=== PATIENT | male | born 1960 | race Caucasian/White ===

== ENCOUNTER 2023-08-26 09:18 | Outpatient (OUT) | payer OTHER, SELFPAY ==
--- NOTE | 2023-08-26 09:22 | US_ITS ---
The [address] [address] Patient Name: BELGICA PRINCE MRN: [id number] date: 1960 Sex: M Assigned Patient Location: US Current Patient Location: US Accession/Order Number: [id number] Exam Date: 08/26/2023 09:23 Report Date: 08/26/2023 14:05 At the request of: TERRI FENTON Procedure: US right upper quadrant EXAMINATION: US right upper quadrant HISTORY: Gastritis K29.70 ; not feeling well COMPARISON: No relevant comparison available. TECHNIQUE: Transabdominal evaluation of the right upper quadrant. FINDINGS: LIVER: Normal size and echotexture. Color Doppler demonstrates patent hepatic veins. PORTAL VEIN: Duplex Doppler demonstrates normal hepatopetal flow pattern with flow velocity averaging 27 cm/s. GALLBLADDER: Contains a 3 mm polyp versus small stone adherent to posterior wall. No abnormal wall thickening or free fluid. Negative sonographic Parish's sign. BILIARY: No abnormal dilation or stones. Common bile duct diameter is within normal limits. PANCREASE: No visible mass, abnormal atrophy, or abnormal duct dilation. KIDNEY: No hydronephrosis. No visible mass or stones. Size: [9.2 x 5.7 x 5.6 cm US/US right upper quadrant IMPRESSION: 1. Incidental small stone versus polyp within gallbladder. 2. No suspicious findings to account for patient's symptoms. Electronically authenticated by: NICHOLAS HALE Date: 08/26/2023 14:05
== END 2023-08-26 09:19 | disposition home or self-care (01) ==
LOC: US 09:18
PROVIDERS: PCP Family Medicine; Visit Provider Family Medicine
DX: K29.70 Gastritis, unspecified, without bleeding (principal)
CPT/HCPCS: 76705

== ENCOUNTER 2023-09-10 08:49 | Outpatient (OUT) | payer OTHER, SELFPAY ==
--- NOTE | 2023-09-10 09:02 | CT_ITS ---
The [address] [address] Patient Name: BELGICA PRINCE MRN: [id number] date: 1960 Sex: M Assigned Patient Location: LAB Current Patient Location: Accession/Order Number: [id number] Exam Date: 09/10/2023 10:00 Report Date: 09/12/2023 08:42 At the request of: TERRI FENTON Procedure: CT abdomen pelvis w con EXAM: CT abdomen pelvis w con HISTORY: R10.9, K29.70 chronic nausea and abdominal pain COMPARISON: None. TECHNIQUE: Following intravenous administration of 94 mL of Omnipaque 300, axial soft tissue windows of the abdomen and pelvis were performed with coronal and sagittal reformats. CT dose reduction technique was used including Automated Exposure Control. Findings: The liver, gallbladder, spleen, pancreas, adrenal glands and kidneys are unremarkable. The bilateral ureters are nondilated. The bowel is unremarkable without evidence of wall thickening or obstruction. The appendix is nondilated. The aorta is normal caliber. Moderate atherosclerotic disease. No enlarged abdominal lymph nodes or free abdominal fluid. Tiny fat-containing umbilicus hernia. Pelvis: There is mild circumferential bladder wall thickening. No bladder calculi. The prostate is nonenlarged. No enlarged pelvic lymph nodes or free pelvic fluid. No aggressive sclerotic or lytic osseous lesions. Mild multilevel degenerative thoracic spondylosis. CT/CT abdomen pelvis w con IMPRESSION: 1. Mild circumferential bladder wall thickening may relate to lack of complete distention. Chronic outlet obstruction and cystitis can have a similar appearance. Electronically authenticated by: FRANSISCO THOMAS Date: 09/12/2023 08:42
[2023-09-10 09:10] LABS: Estimated GFR (African America >60 (>=60); Estimated GFR (Non-African Ame >60 (>=60)
== END 2023-09-10 08:50 | disposition home or self-care (01) ==
LOC: LAB 08:49
PROVIDERS: PCP Family Medicine; Visit Provider Family Medicine
DX: R10.9 Unspecified abdominal pain (principal); K29.70 Gastritis, unspecified, without bleeding
CPT/HCPCS: 36415; 74177; 82565; Q9967

== ENCOUNTER 2023-12-27 09:19 | Outpatient (OUT) | payer OTHER, SELFPAY ==
--- NOTE | 2023-12-27 09:32 | XR_ITS ---
The [address] [address] Patient Name: BELGICA PRINCE MRN: [id number] date: 1960 Sex: M Assigned Patient Location: [facility] Current Patient Location: LAB Accession/Order Number: [id number] Exam Date: 12/27/2023 09:33 Report Date: 12/28/2023 08:05 At the request of: TERRI FENTON Procedure: XR chest 2V EXAMINATION: XR chest 2V HISTORY: Weakness, Chronic Obstructive Pulmonary Disease COMPARISON: No relevant comparison available. TECHNIQUE: PA and lateral FINDINGS: LUNGS: No significant pulmonary parenchymal abnormalities. VASCULATURE: No increased pulmonary vasculature. PLEURA: No pneumothorax, effusion, or pleural thickening. CARDIAC: No cardiomegaly or cardiac silhouette abnormality. MEDIASTINUM: No visible mass or adenopathy. BONES: No fracture or visible bone lesion. OTHER: Negative. XR/XR chest 2V IMPRESSION: No acute cardiopulmonary process Electronically authenticated by: RAMSES TREVINO Date: 12/28/2023 08:05
== END 2023-12-27 09:20 | disposition home or self-care (01) ==
LOC: RAD 09:20
PROVIDERS: PCP Family Medicine; Visit Provider Family Medicine
DX: R53.1 Weakness (principal); J44.9 Chronic obstructive pulmonary disease, unspecified
CPT/HCPCS: 71046

== ENCOUNTER 2023-12-28 08:04 | Outpatient (OUT) | payer OTHER, SELFPAY ==
[2023-12-28 08:18] LABS: Basophils Absolute Auto 0.1 10^3/uL (0.0-0.1); Basophils Percent Auto 0.7 % (0.2-2.0); Eosinophils Absolute Auto 0.1 10^3/uL (0.0-0.7); Eosinophils Percent Auto 1.9 % (0.9-7.0); Hematocrit 44.6 % (42.0-54.0); Immature Granulocytes Abs Auto 0.03 10^3/uL (0.00-0.03); Immature Granulocytes Pct Auto 0.4 % (0.0-0.5); Lymphocytes Absolute Auto 1.8 10^3/uL (1.2-3.8); Lymphocytes Percent Auto 24.2 % (20.5-60.0); Mean Corpuscular HGB Conc 33.6 g/dL (29.9-35.2); Mean Corpuscular Hemoglobin 29.9 pg (25.9-34.0); Mean Platelet Volume 9.6 fL (9.5-13.5); Monocytes Absolute Auto 0.6 10^3/uL (0.3-0.8); Neutrophils Absolute Auto 4.9 10^3/uL (1.4-6.5); Neutrophils Percent Auto 64.8 % (43.0-75.0); Platelet Count 245 10^3/uL (150-450); Red Blood Count 5.01 10^6/uL (4.70-6.10); White Blood Count 7.5 10^3/uL (4.0-11.0)
[2023-12-28 10:41] LABS: Thyroid Stimulating Hormone 1.181 uIU/mL (0.358-3.740)
[2023-12-28 11:31] LABS: Estimated Average Glucose 97 mg/dL
[2023-12-28 13:16] LABS: Free T4 1.11 ng/dL (0.76-1.46)
[2023-12-29 05:09] LABS: Testosterone 489 ng/dL (264-916)
== END 2023-12-28 08:05 | disposition home or self-care (01) ==
LOC: LAB 08:04
PROVIDERS: PCP Family Medicine; Visit Provider Family Medicine
DX: I11.0 Hypertensive heart disease with heart failure (principal); I50.30 Unspecified diastolic (congestive) heart failure; R53.1 Weakness; R73.09 Other abnormal glucose
CPT/HCPCS: 36415; 83036; 83880; 84403; 84439; 84443; 85025

== ENCOUNTER 2024-03-16 11:23 | Outpatient (OUT) | payer OTHER, SELFPAY ==
--- OUTSIDE RECORDS SUMMARY | 2024-03-16 11:25 | XMS_ITS | CCD ---
Author Organization [facility] Care Team Providers Care Living Manager Name Role Phone KRIS MCDOWELL Attending Unavailable OLEXA, KRIS Admitting Unavailable OLEXA, KRIS Admitting Unavailable OLEXA, KRIS Attending Unavailable RAY, DR MURRAY Primary Care Unavailable NELLYY, DR MURRAY Consulting Unavailable HOY, DR MURRAY Attending Unavailable HOY, DR MURRAY Admitting Unavailable ZIEBER, DR NICHOLAS Suarez Consulting Unavailable NILL, DR ADAN Attending Unavailable NILL, DR ADAN Admitting Unavailable NILL, DR ADAN Consulting Unavailable PREETI, LISA Consulting Unavailable NELLYY, DR MURRAY Attending Unavailable HOY, DR MURRAY Admitting Unavailable NILL, DR ADAN Admitting Unavailable NILL, DR ADAN Consulting Unavailable NILL, DR ADAN Attending Unavailable OLEXA, KRIS Attending Unavailable JE, KRIS Admitting Unavailable Terri Bell Primary Care Physician Terri Bell Referring Unavailable JORGE, Antionette Suarez Attending Unavailable James Stapleton Attending Unavailable MoVandana delgadillo AKelsi Attending Unavailable Moucheunice Mohamad AKelsi Attending Unavailable Moelie, Mohamad AKelsi Referring Unavailable Mobebetoli Mohamad AKelsi Admitting Unavailable Mouchli, Mohamad A. Attending Unavailable Moelie, Mohamad AKelsi Admitting Unavailable Allergies Allergy Classification Reported Allergen(s) Allergy Type Date of Onset Reaction(s) Facility (3 sources) No Known Medication Allergies; Translations: [No Known Medication Allergies] Propensity to adverse reactions (disorder) [facility] Repository Medications Current Medications Medication Drug Class(es) Dates Sig (Normalized) Sig (Original) ARIPiprazole 5 mg oral tablet (5 sources) Atypical Antipsychotic Start: 08-24-2023 take 1 tablet by mouth once daily Abilify 5 mg Tab 5 mg = 1 tab(s), Oral, Daily, Refills(s) 0, Depression Start Date: 08/24/23 Status: Ordered 24 hr buPROPion hydrochloride 150 mg extended release oral tablet (5 sources) Aminoketone Start: 08-24-2023 take 1 tablet by mouth once daily Wellbutrin XL 150 mg/24 hours Tab-ER 150 mg = 1 tab(s), Oral, Daily, Refills(s) 0, Depression Start Date: 08/24/23 Status: Ordered famotidine 20 mg oral tablet (3 sources) Histamine-2 Receptor Antagonist Start: 12-06-2023 End: 12-20-2023 take 1 tablet by mouth twice daily famotidine 20 mg Tab 20 mg = 1 tab(s), Oral, BID, X 14 day(s), # 28 tab(s), Refills(s) 0, Pharmacy: [id number], 170, cm, 12/06/23 13:17:00 EDT, Height/Length Dosing, 63.4, kg, 12/06/23 13:17:00 EDT, Weight Dosing Start Date: 12/06/23 Stop Date: 12/20/23 Status: Ordered ondansetron 4 mg disintegrating oral tablet (4 sources) Serotonin-3 Receptor Antagonist Start: 12-06-2023 take 1 tablet by mouth every six hours ondansetron 4 mg Dis Tab 4 mg = 1 tab(s), Oral, q6hr, # 12 tab(s), Refills(s) 0, Pharmacy: [id number], 170, cm, 12/06/23 13:17:00 EDT, Height/Length Dosing, 63.4, kg, 12/06/23 13:17:00 EDT, Weight Dosing Start Date: 12/06/23 Status: Ordered pantoprazole 40 mg delayed release oral tablet (2 sources) Proton Pump Inhibitor Start: 12-16-2023 take 1 tablet by mouth once daily Protonix 40 mg Tab-DR 40 mg = 1 tab(s), Oral, Daily, # 30 tab(s), Refills(s) 6, Pharmacy: [id number], 170, cm, 12/16/23 7:24:00 EDT, Height/Length Dosing, 63.5, kg, 12/16/23 7:24:00 EDT, Weight Dosing Start Date: 12/16/23 Status: Ordered Problems Active Problems Problem Classification Problem Date Documented Da te Episodic/Chronic Abdominal pain (16 sources) Epigastric pain; Translations: [Epigastric pain] Onset: 09-20-2023 Episodic Alcohol-related disorders (4 sources) Chronic alcoholism in remission; Translations: [Alcohol dependence, in remission] Onset: 12-15-2023 Chronic Anxiety disorders (5 sources) Anxiety 08-24-2023 Chronic Esophageal disorders (6 sources) Gastro-esophageal reflux disease without esophagitis; Translations: [Gastroesophageal reflux disease without esophagitis] Onset: 07-14-2020 Chronic Genitourinary symptoms and ill-defined conditions (5 sources) History of hematuria 08-24-2023 Episodic Malaise and fatigue (1 source) Weakness; Translations: [WEAKNESS] Onset: 07-02-2021 Episodic Nausea and vomiting (13 sources) Nausea; Translations: [Nausea] Onset: 09-20-2023 Episodic Osteoarthritis (2 sources) Primary osteoarthritis, right shoulder; Translations: [Unspecified osteoarthritis, unspecified site] Onset: 07-14-2020 Chronic Other connective tissue disease (1 source) Abnormal posture; Translations: [ABNORMAL POSTURE] Onset: 07-02-2021 Episodic Other gastrointestinal disorders (5 sources) Occult blood in stools 06-23-2020 Episodic Other non-traumatic joint disorders (1 source) Pain in right shoulder; Translations: [PAIN IN RIGHT SHOULDER] Onset: 07-02-2021 Episodic Other non-traumatic joint disorders (1 source) Stiffness of right shoulder, not elsewhere classified; Translations: [STIFFNESS RIGHT SHOULDER NEC] Onset: 07-02-2021 Episodic Residual codes; unclassified (5 sources) Tobacco user 08-24-2023 Episodic Spondylosis; intervertebral disc disorders; other back problems (1 source) Other cervical disc degeneration, unspecified cervical region; Translations: [OTH CERV DISC DEGENERATION UNS CERV] Onset: 11-19-2020 Chronic Sprains and strains (4 sources) Strain of muscle(s) and tendon(s) of the rotator cuff of right shoulder, subsequent encounter; Translations: [STRN MSC TEND ROT CUFF RT SHLDR SUB] Onset: 02-19-2021 Episodic Substance-related disorders (1 source) Nicotine dependence, cigarettes, uncomplicated; Translations: [NICOTINE DEPEND CIGARETTES UNCOMP] Onset: 07-14-2020 Chronic Unclassified (1 source) PERSONAL HISTORY OF COVID-19; Translations: [PERSONAL HISTORY OF COVID-19] Onset: 07-14-2020 Unclassified (1 source) CONTACT W/AND (SUSP) EXPOS COVID-19; Translations: [CONTACT W/AND (SUSP) EXPOS COVID-19] Onset: 07-09-2020 Past or Other Problems Problem Classification Problem Date Documented Da te Episodic/Chronic Other and unspecified benign neoplasm (1 source) Benign neoplasm of sigmoid colon; Translations: [BENIGN NEOPLASM OF SIGMOID COLON] Onset: 07-14-2020 Episodic Other connective tissue disease (4 sources) Impingement syndrome of right shoulder; Translations: [IMPINGEMENT SYNDROME RIGHT SHOULDER] Onset: 11-17-2020 Episodic Other gastrointestinal disorders (4 sources) Other fecal abnormalities; Translations: [OTHER FECAL ABNORMALITIES] Onset: 07-09-2020 Episodic Results Test Name Value Interpretation Reference Range Facility H. pylori Stool Agon 024 H. pylori Ag IA Ql (Stl) Negative Invalid Interpretation Code Negative [facility] Comment on above: Result Comment: Perf ormed at: [facility] [address] [id number] PhD Juliette Baltazar Performed By: #### 1 [id number] #### [facility] [address] [place] [address] Surgical Pathology Reporton 12-20-2023 Surgical Pathology Report [facility] [address] [place] [address]- Surgical Pathology Report Collected Date/Time: 12/16/2023 08:40 EDT Pathologist: Jesse Menendez MD Received Date/Time: 12/16/2023 10:18 EDT Leyla STEPHENS, Vandana Mayer MD, Vandana Simmons Surgical Pathology Report - 12/20/2023 10:27 EDT - Auth (Verified) Final Diagnosis A: LOWER ESOPHAGUS, BIOPSY: - Gastroesophageal junctional mucosa consistent with reflux esophagitis with rare goblet cells. - No definite evidence of intestinal metaplasia/Junior's-type mucosa identified. - No evidence of dysplasia or malignancy identified. B: STOMACH, BIOPSY: - Antral-type gastric mucosa with marked chronic inactive gastritis. - Helicobacter pylori microorganisms are identified with immunohistochemical stain. (Electronic Signature) Yan. Gemma MD 12/20/2023 10:27 Clinical Information Nausea, chronic GERD, abdominal pain Pre-Op Diagnosis: Nausea, chronic GERD, abdominal pain Procedure: EGD Post-Op Diagnosis: 1.Hiatal hernia 2.Probable BE 3.Gastropathy 4.Duodenitis Specimen(s) Received A: Lower esophagus biopsy B: Gastric biopsy Gross Description A: Received in formalin labeled with patient name, number, and lower esophagus biopsy are multiple fragments of armstrong/pink tissue ranging from 0.1 to 0.3 cm in greatest dimension. Specimen is entirely submitted in one cassette. B: Received in formalin labeled with patient name, number, and gastric biopsy are four fragments of armstrong/pink tissue ranging from 0.1 cm up to 0.3 cm in greatest dimension. The specimen is entirely submitted in one cassette. (DC) DC:[facility] Microscopic Description A&B: Microscopic examination performed unless gross only specified. The use of one or more reagents in the above tests is regulated as an analyte specific reagent (ASR). The test or tests are ordered following initial H&E microscopic examination. The performance characteristics were determined by the Laboratory of [facility]. They have not been cleared or approved by the US Food and Drug Administration. The FDA has determined that such clearance or approval is not necessary. These tests are used for clinical purposes. They should not be regarded as investigational or for research. Appropriate positive and negative controls are performed and are acceptable. Normal [facility] Comment on above: Performed By: #### [id number] #### [facility] [address] [place] [address] Main OR Intraoperative Recor don 12-19-2023 Main OR Intraoperative Record Main OR Intraoperative Record IntraOp Document Type FT Summary Primary Physician: Vandana Mayer MD Finalized Date/Time: 12/19/23 08:59:49 Pt. Name: BELGICA FLANAGAN/Sex: 1960 Male Med Rec #: [id number] Physician: Vandana Mayer MD Financial #: [id number] Pt. Type: O Room/Bed: / Admit/Disch: 12/16/23 06:53:32 - 12/16/23 23:59:59 Institution: Case Times FT Entry 1 Patient Times In Room 12/16/23 08:32:00 Out Room 12/16/23 08:44:00 Procedure Times Start 12/16/23 08:38:00 Stop 12/16/23 08:42:00 Anesthesia Times Start 12/16/23 08:32:00 Stop 12/16/23 08:44:00 Last Modified By: Anna ALBERT, Jacqueline Gonzalez 12/16/23 08:43:48 General Comments: 12/19/23 Chart opened for charge review per Shannon Jackson RN. [place] Case Attendance FT Entry 1 Entry 2 Entry 3 Case Attendee Thai DAVILA, Robert Mayer MD, Vandana Castillo RN, Jacqueline Gonzalez Role Performed Anesthesiologist Surgeon - Primary Palletizer Operator - Primary Cigarette Book Maker Time In 12/16/23 08:32:00 12/16/23 08:32:00 12/16/23 08:32:00 Time Out 12/16/23 08:44:00 12/16/23 08:44:00 12/16/23 08:44:00 Procedure EGD(.) EGD(.) EGD(.) Comments Dr. Junior supervising case Last Modified By: Anna ALBERT, Jacqueline Castillo RN, Jacqueline Castillo RN, Jacqueline Gonzalez 12/16/23 08:43:48 F 12/16/23 08:43:48 F 12/16/23 08:43:48 Entry 4 Case Attendee Arlette Oleary CST Role Performed Scrub - Primary Time In 12/16/23 08:32:00 Time Out 12/16/23 08:44:00 Procedure EGD(.) Comments Last Modified By: Anna ALBERT, Jacqueline Gonzalez 12/16/23 08:43:48 Perioperative Protocols FT Pre-Care Text: Implements protective measures prior to operative or invasive procedure, confirms identity before the operative or invasive procedure, verifies operative procedure, surgical site, and laterality Entry 1 Procedure(s) EGD(.) Patient Identity Birthday, ID Band Verified (select at Check, Patient least 2): Participation Consents / H and P Anesthesia Consent, Operative Site N/A Verified HandP, Surgery/Procedure Marking Verified Consent Surgical Site No Laterality Verified n/a Verified Procedure Verified Yes Correct Patient Yes Position Verified Availability Equipment, Medication Prep Dry n/a Verified (If Applicable) PreOp Antibiotic No Time Out Thai DAVILA, Leyla Corrales MD, Vandana Diaz, Anna ALBERT, Jacqueline FMamta CST, Arlette [place] Time Out Complete 12/16/23 08:35:00 Outcomes Met? Yes Last Modified By: Jacqueline Castillo RN 12/16/23 08:38:04 Post-Care Text: The patient is free from signs and symptoms of injury caused by extraneous objects Allergy Information FT Pre-Care Text: Verifies allergies Entry 1 Allergies Reviewed? Yes Allergies Reviewed Self/Patient With Outcomes Met? Yes Last Modified By: Jacqueline Castillo RN 12/16/23 08:38:12 Post-Care Text: The patient received appropriate medication(s) safely administered during the perioperative period Surgical Procedures FT Entry 1 Procedure Description Procedure EGD Modifiers . Surgeon Description EGD with lower esophagus biopsy, gastric biopsy. Primary Procedure Yes Primary Surgeon Leyla STEPHENS, Vandana Diaz Start 12/16/23 08:38:00 Stop 12/16/23 08:42:00 Anesthesia Type General Surgical Service Gastroenterology Wound Class 2 - Clean-Contaminated Last Modified By: Jacqueline Castillo RN 12/16/23 08:43:51 General Case Data FT Pre-Care Text: Classifies surgical wound, implements aseptic technique, initiates traffic control Entry 1 Case Information OR ENDO 1 FT Case Level Level 2 Wound Class 2 - Clean-Contaminated Specialty Gastroenterology ASA Class 3 Preop Diagnosis Nausea, chronic GERD, Postop Same As Preop No abdominal pain Postop Diagnosis Gastropathy, Outcomes Met? Yes duodenitis, hiatal hernia, possible Junior's esophagus Last Modified By: Jacqueline Castillo RN 12/16/23 08:39:23 Post-Care Text: The patient is free from signs and symptoms of infection Skin Assessment (Pre Procedure) FT Pre-Care Text: Implements protective measures to prevent skin/ tissue injury due to thermal or mechanical sources Evaluates for signs and symptoms of physical injury to skin and tissue Entry 1 Skin Integrity Intact, [place], Warm, and Skin Abnormality No Dry Outcomes Met? Yes Last Modified By: Jacqueline Castillo RN 12/16/23 08:38:45 Post-Care Text: The patient is free from signs and symptoms of injury caused by extraneous objects Patient Positioning FT Pre-Care Text: Identifies physical alterations that require additional precautions for procedure-specific positioning, verifies presence of prosthetics or corrective devices, positions the patient, evaluates the patient for signs and symptoms of injury as a result of positioning Entry 1 Procedure EGD(.) Body Position Lateral, right side up Feet Uncrossed? Yes Left Arm Position Resting at Oj (more content not included)... Normal [facility] Discharge Instructionson Discharge Instructions Discharge Instruc tions BELGICA FLANAGAN :1960 Visit Date:12/16/2023 Inpatient Discharge Instructions Your Care Team Admitting Physician - Vandana Mayer MD Referring Physician - Vandana Mayer MD Reason for Your Visit NAUSEA, CHRONIC GERD, ABDOMINAL PAIN Your Diagnosis Duodenitis Gastropathy Hernia, hiatal Tests Performed Pathology Tissue Exam -- Results Pending -- Please visit your patient portal for your results or contact your primary care physician. This Is Your Medications List aripiprazole (Abilify 5 mg Tab) buPROPion (Wellbutrin XL 150 mg/24 hours Tab-ER) famotidine (famotidine 20 mg Tab) ondansetron (ondansetron 4 mg Dis Tab) pantoprazole (Protonix 40 mg Tab-DR) Procedure History Esophagogastroduodenoscop y (12/16/2023), Colonoscopy (06/2020), Rotator cuff repair. What to do next Instructions From Your Doctor No qualifying data available. New Follow Up Appointments after Discharge Follow Up with Vandana Mayer MD, [facility] When: Comments: Call for any problems. The office will reach out in about one week from procedure date. Where: Medications What How Much When Instructions Next Dose New pantoprazole (Protonix 40 mg Tab-DR) 1 Tablets By Mouth Every day Refills: 6 Pickup at [facility] Unchanged aripiprazole (Abilify 5 mg Tab) 1 Tablets By Mouth Every day Unchanged buPROPion (Wellbutrin XL 150 mg/ 24 hours Tab-ER) 1 Tablets By Mouth Every day Unchanged famotidine (famotidine 20 mg Tab) 1 Tablets By Mouth 2 times a day Duration: 14 Days Unchanged ondansetron (ondansetron 4 mg Dis Tab) 1 Tablets By Mouth Every 6 hours Pharmacy Information [facility]: [address] [place] [id number] [phone] Test Results No qualifying data available. Allergies No Known Allergies No Known Medication Allergies Problems Ongoing - Any problem that you are currently receiving treatment for. Abdominal pain Abdominal pain in male Alcohol dependence in remission Anxiety Chronic GERD Epigastric pain Nausea Nausea in adult Positive occult stool blood test Tobacco user Historical - Any problem that you are no longer receiving treatment for. History of gross hematuria Education Materials Hiatal Hernia A hiatal hernia occurs when part of the stomach slides above the muscle that separates the abdomen from the chest (diaphragm). A person can be born with a hiatal hernia (congenital), or it may develop over time. In almost all cases of hiatal hernia, only the top part of the stomach pushes through the diaphragm. Many people have a hiatal hernia with no symptoms. The larger the hernia, the more likely it is that you will have symptoms. In some cases, a hiatal hernia allows stomach acid to flow back into the tube that carries food from your mouth to your stomach (esophagus). This may cause heartburn symptoms. The development of heartburn symptoms may mean that you have a condition called gastroesophageal reflux disease (GERD). What are the causes? This condition is caused by a weakness in the opening (hiatus) where the esophagus passes through the diaphragm to attach to the upper part of the stomach. A person may be born with a weakness in the hiatus, or a weakness can develop over time. What increases the risk? This condition is more likely to develop in: ? Older people. Age is a major risk factor for a hiatal hernia, especially if you are over the age of 50. ? women. ? People who are overweight. ? People who have frequent constipation. What are the signs or symptoms? Symptoms of this condition usually develop in the form of GERD symptoms. Symptoms include: ? Heartburn. ? Upset stomach (indigestion). ? Trouble swallowing. ? Coughing or wheezing. Wheezing is making high-pitched whistling sounds when you breathe. ? Sore throat. ? Chest pain. ? Nausea and vomiting. How is this diagnosed? This condition may be diagnosed during testing for GERD. Tests that may be done include: ? X-rays of your stomach or chest. ? An upper gastrointestinal (GI) series. This is an X-ray exam of your GI tract that is taken after you swallow a chalky liquid that shows up clearly on the X-ray. ? Endoscopy. This is a procedure to look into your stomach using a thin, flexible tube that has a tiny camera and light on the end of it. How is this treated? This condition may be treated by: ? Dietary and lifestyle changes to help reduce GERD symptoms. ? Medicines. These may include: ? [id number] antacids. ? Medicines that make your stomach empty more quickly. ? Medicines that block the production of stomach acid (H2 blockers). ? Stronger medicines to reduce stomach acid (proton pump inhibitors). ? Surgery to repair the hernia, if other treatments are not helping. If you have no symptoms, you may n (more content not included)... Normal [facility] Comment on above: Result Comment: Elec tronically Signed By: Betzaida Ignacio I\.br\Date and Time Signed: 12/16/23 08:54 EDT [facility] 12-16-2023 Esophagogastroduodenoscop y EGD Patient: BELGICA FLANAGAN Age: 63 years Sex: Male : 1960 Associated Diagnoses: None Author: Vandana Mayer MD Pre-Procedure Procedure Date 12/16/2023 08:42:00 . Procedure Type: Esophagogastroduodenoscop y with biopsy. Procedure provider Performed by Vandana Mayer MD. Current history and physical Documented on chart. Informed Consent After discussing the rationale, risks and benefits, and alternatives to this procedure, the patient provided signed consent for the procedure. Pre-procedure diagnosis: abd pain. Medications (Selected) Inpatient Medications Ordered Lactated Ringers IV Mery 1000 mL 1,000 mL: 1,000 mL, IV, 100 mL/hr, Routine, Start date 12/16/23 7:33:00 EDT, 10 hour(s), Total volume (mL): 1,000, 63.5 kg, 1.73, m2 Sodium Chloride 0.9% IV Mery 1000 mL 1,000 mL: 1,000 mL, IV, 20 mL/hr, Routine, Start date 12/16/23 6:41:00 EDT, 50 hour(s), Total volume (mL): 1,000, 63.5 kg, 1.73, m2 Prescriptions Prescribed famotidine 20 mg Tab: 20 mg = 1 tab(s), Oral, BID, X 14 day(s), # 28 tab(s), Refills(s) 0, Pharmacy: [facility], 170, cm, 12/06/23 13:17:00 EDT, Height/Length Dosing, 63.4, kg, 12/06/23 13:17:00 EDT, Weight Dosing ondansetron 4 mg Dis Tab: 4 mg = 1 tab(s), Oral, q6hr, # 12 tab(s), Refills(s) 0, Pharmacy: [facility], 170, cm, 12/06/23 13:17:00 EDT, Height/Length Dosing, 63.4, kg, 12/06/23 13:17:00 EDT, Weight Dosing Documented Medications Documented Abilify 5 mg Tab: 5 mg = 1 tab(s), Oral, Daily, Refills(s) 0, Depression Wellbutrin XL 150 mg/24 hours Tab-ER: 150 mg = 1 tab(s), Oral, Daily, Refills(s) 0, Depression Anticoagulant/antiplatele t None. ASA Classification: Class II. . Monitoring: See anesthesia record. . Procedure The procedure was performed in the hospital. See anesthesia record for sedation given during procedure. The patient was positioned starting in the left lateral decubitus position and with safety measures. Endoscope type used was an adult-size, introduced orally, advanced to the 2nd portion of the duodenum. No difficulty was encountered during the procedure. Views were excellent. The patient tolerated the procedure well. Findings 1. Normal esophagus. Z line at 39 cm, small hiatal hernia. Small tongue of salmon-colored mucosa (C0M1) s/p bx. 2. Erythema in the antrum, mild patchy. Otherwise normal stomach. Biopsies of the stomach were taken to rule out H. pylori. 3. Erythema in the duodenal bulb. otherwise, Normal duodenum. Images Procedure images: [email or web address]_hd_video_ [id number].jpg Rec_hd_video_ [id number].jpg Rec1_hd_video_ [id number].jpg Rec1_hd_video_ [id number].jpg Rec1_hd_video_[id number] [id number].jpg Rec1_hd_video_ [id number].jpg Rec1_hd_video_ [id number].jpg . Post-Procedure Complications: none. Estimated blood loss: minimal. Specimens: sent to pathology. Devices/ implants: none left in place. Impression and Plan Hiatal hernia Probable BE Gastropathy Duodenitis Recommendations: -Resume previous diet -Resume home medications -Start Protonix 40mg Daily -Await pathology results, follow in GI clinic in 1-2 after discharge [facility] Comment on above: Other Comment: Eden williamson Attachment - attachment storage system not supported [id number] Can be viewed in source system Missing Attachment - attachment storage system not supported [id number] Can be viewed in source system Missing Attachment - attachment storage system not supported [id number] Can be viewed in source system Missing Attachment - attachment storage system not supported [id number] Can be viewed in source system Missing Attachment - attachment storage system not supported [id number] Can be viewed in source system Missing Attachment - attachment storage system not supported [id number] Can be viewed in source system Missing Attachment - attachment storage system not supported [id number] Can be viewed in source system Main OR PACU I Recordon 11-27 Main OR PACU I Record Main OR PACU I Rec ord PACU Phase I Document Type FT Summary Primary Physician: Leyla STEPHENS, Vandana Diaz Finalized Date/Time: 12/16/23 09:35:21 Pt. Name: BELGICA FLANAGAN /Sex: 1960 Male Med Rec #: [id number] Physician: Vandana Mayer MD Financial #: [id number] Pt. Type: O Room/Bed: / Admit/Disch: 12/16/23 06:53:32 - Institution: Case Times PACU I FT Pre-Care Text: Identifies barriers to communication and implements measures to provide psychological support Develops individualized plan of care, and ensures continuity of care Maintains patient's dignity and privacy, and maintains patient confidentiality Identifies and reports philosophical, cultural, and spiritual beliefs and values Identifies individual values and wishes concerning care Implements aseptic technique, and administers prescribed antibiotic therapy and immunizing agents as ordered Evaluates postoperative tissue perfusion Implements thermoregulation measures, and monitors body temperature Evaluates postoperative respiratory status Evaluates postoperative cardiac status Evaluates postoperative neurological status Assesses pain control, collaborated in initiating patient-controlled analgesia and implements alternative methods of pain control Verifies allergies, administers prescribed medications and solutions, evaluates response to medications Entry 1 In PACU I 12/16/23 08:46:00 Discharge from PACU 12/16/23 09:16:00 I Outcomes Met? Yes Last Modified By: Betzaida Ignacio I 12/16/23 09:34:53 Post-Care Text: The patient demonstrates knowledge of the expected response to the operative or invasive procedure The patient's care is consistent with the individualized perioperative plan of care The patient's right to privacy is maintained The patient's value system, lifestyle, ethnicity, and culture are considered, respected, and incorporated into the perioperative plan of care The patient participates in decisions affecting his or her perioperative plan of care The patient is free from signs and symptoms of infection The patient has wound/tissue perfusion consistent with or improved from baseline levels established preoperatively The patient is at or returning to normothermia at the conclusion of the immediate postoperative period The patient's respiratory function is consistent with or improved from baseline levels established preoperatively The patient's cardiovascular status is consistent with or improved from baseline levels established preoperatively The patient's cardiovascular status is consistent with or improved from baseline levels established preoperatively The patient demonstrates and/or reports adequate pain control throughout the perioperative period The patient received appropriate medication(s), safely administered during the perioperative period Acuity Level PACU I FT Entry 1 Start Time 12/16/23 08:46:00 Stop Time 12/16/23 09:16:00 Acuity Level Acuity Level I Last Modified By: Betzaida Ignacio I 12/16/23 09:35:17 Finalized By: Betzaida Ignacio I Document Signatures Signed By: Betzaida Ignacio I 12/16/23 09:35 Normal [facility] Main OR Preoperative Recordo n 12-16-2023 Main OR Preoperative Record Main OR Preoperative Record Holding Area Document Type FT Summary Primary Physician: Vandana Mayer MD Finalized Date/Time: 12/16/23 07:25:27 Pt. Name: NIKI BELGICA Daniela Loja/Sex: 1960 Male Med Rec #: [id number] Physician: Vandana Mayer MD Financial #: [id number] Pt. Type: O Room/Bed: / Admit/Disch: 12/16/23 06:53:32 - Institution: Case Times Holding FT Pre-Care Text: Verifies consent for planned procedure, identifies individual values and wishes concerning care, includes family members in perioperative teaching Secures patient's records' belongings, and valuables, maintains patient's dignity and privacy, and maintains patient confidentiality Entry 1 In Holding 12/16/23 07:15:00 Outcomes Met? Yes Last Modified By: Anna ALBERT, Jacqueline Gonzalez 12/16/23 07:24:58 Post-Care Text: The patient participates in decisions affecting his or her perioperative plan of care The patient's right to privacy is maintained Surgery Checklist FT Entry 1 Patient Birthday, ID Band Procedure History and Physical, Identification: Check, Patient Verification: Surgical Consent, With Participation Patient NPO after Midnight: Yes Date/Time: 12/16/23 00:00:00 Personal Items: Dentures, Glasses, Personal Items glasses, dentures, Jewelry Comment: shoes, ring Limitations: n/a Complaints of Pain: No Pain Comment: denies Operative Site n/a Marking: Marked By: n/a Availability Equipment Verified: Does Patient Smoke No Patient states Yes Comment - Adult - Lidia postop adult Supervision supervision available Case Cancelled in No Holding Area see comments below for reason Last Modified By: Jacqueline Castillo RN 12/16/23 07:25:26 Finalized By: Jacqueline Castillo RN Document Signatures Signed By: Jacqueline Castillo RN 12/16/23 07:25 Normal [facility] Ambulatory Visit Summaryon 0 12-15-2023 Ambulatory Visit Summary Ambulatory Visi t Summary BELGICA FLANAGAN :1960 Visit Date:12/15/2023 Ambulatory Visit Instructions Your Diagnosis Nausea Chronic GERD Abdominal pain in male Alcohol dependence in remission Your Care Team Attending Physician - Leyla STEPHENS, Vandana Diaz Primary Care Physician - Terri Bell MD This Is Your Medications List Contact prescribing physician if questions or concerns aripiprazole (Abilify 5 mg Tab) buPROPion (Wellbutrin XL 150 mg/24 hours Tab-ER) famotidine (famotidine 20 mg Tab) ondansetron (ondansetron 4 mg Dis Tab) Procedures Performed Colonoscopy (06/2020), Rotator cuff repair. Discharge Vitals Heart Rate (Peripheral) 67 Blood Pressure 131/79 Height 67 in Height 170 cm Weight 139.7 lb Weight 63.5 kg BMI 21.97 Medications What How Much When Instructions Unchanged aripiprazole (Abilify 5 mg Tab) 1 Tablets By Mouth Every day Contact prescribing physician if questions or concerns Unchanged buPROPion (Wellbutrin XL 150 mg/ 24 hours Tab-ER) 1 Tablets By Mouth Every day Contact prescribing physician if questions or concerns Unchanged famotidine (famotidine 20 mg Tab) 1 Tablets By Mouth 2 times a day Duration: 14 Days Contact prescribing physician if questions or concerns Unchanged ondansetron (ondansetron 4 mg Dis Tab) 1 Tablets By Mouth Every 6 hours Contact prescribing physician if questions or concerns Allergies No Known Allergies No Known Medication Allergies Problems Ongoing - Any problem that you are currently receiving treatment for. Abdominal pain Abdominal pain in male Alcohol dependence in remission Anxiety Chronic GERD Epigastric pain Nausea Nausea in adult Positive occult stool blood test Tobacco user Historical - Any problem that you are no longer receiving treatment for. History of gross hematuria Patient Survey You may receive a survey via text or e-mail asking about your office visit. Please share your experience with us by completing your survey. We appreciate your feedback and thank you for choosing us for your care. Normal [facility] Gastroenterology Office/Clin ic Noteon 12-15-2023 Gastroenterology Office/Clinic Note Gastroenterology Office/Clinic Note Chief Complaint Unable to eat due too constant nausea x 6 months and has worsened. HPI Staff This is a 63 year old male who presents today for a follow up [facility] [place] 12/06/23, for complaints of GERD and Nausea x 6 months that has worsened. ER Discharge Prescription List Prescriptions famotidine 20 mg Tab, 20 mg= 1 tab(s), Oral, BID ondansetron 4 mg Dis Tab, 4 mg= 1 tab(s), Oral, q6hr Patient states that he did not notice improvement with medication from ER. CT Abd/pelv w/ contrast 09/12/23 IMPRESSION: 1. Mild circumferential bladder wall thickening may relate to lack of complete distention. Chronic outlet obstruction and cystitis can have a similar appearance. US RUQ 08/26/23 IMPRESSION: 1. Incidental small stone versus polyp within gallbladder. 2. No suspicious findings to account for patient's symptoms. Colonoscopy w/ Dr Horta 07/09/20 Postoperative diagnosis: Two adjacent distal sigmoid polyps 4 mm and 2 mm. Final Diagnosis Distal sigmoid colon polyp -fragments of hyperplastic polpy(s) -fragments of tubular adenoma x1 Laboratory Results CBC CMP Basophil Absolute: 0 E9/L (12/06/23) A/G Ratio: 1.6 (12/06/23) Basophil Auto: 0.7 % (12/06/23) AGAP: 12 mEq/L (12/06/23) Eos Absolute: 0 E9/L (12/06/23) Albumin Lvl: 4.5 gm/dL (12/06/23) Eos Auto: 0.7 % (12/06/23) Alk Phos: 51 Int._Unit/L (12/06/23) Hct: 43.4 % (12/06/23) ALT: 12 Int._Unit/L (12/06/23) HGB: 14.8 gm/dL (12/06/23) AST: 14 Int._Unit/L (12/06/23) Lymph Absolute: 1.7 E9/L (12/06/23) Bili Total: 1 mg/dL (12/06/23) Lymph Auto: 24.8 % (12/06/23) BUN: 14 mg/dL (12/06/23) MCH: 30.4 pg (12/06/23) BUN/Creat Ratio: 16 (12/06/23) MCHC: 34.1 gm/dL (12/06/23) Calcium Lvl: 9.4 mg/dL (12/06/23) MCV: 89.2 fL (12/06/23) Chloride: 104 mmol/L (12/06/23) [place] Absolute: 0.6 E9/L (12/06/23) CO2: 28 mmol/L (12/06/23) [place] Auto: 8.6 % (12/06/23) Creatinine: 0.9 mg/dL (12/06/23) MPV: 7.7 fL (12/06/23) Globulin: 2.9 gm/dL (12/06/23) Neutro Absolute: 4.5 E9/L (12/06/23) Glucose Lvl: 101 mg/dL (12/06/23) Neutro Auto: 65.2 % (12/06/23) Potassium Lvl: 4.6 mmol/L (12/06/23) Platelet: 240 E9/L (12/06/23) Sodium Lvl: 139 mmol/L (12/06/23) RBC: 4.9 E12/L (12/06/23) Total Protein: 7.4 gm/dL (12/06/23) RDW: 13.5 % (12/06/23) WBC: 6.9 E9/L (12/06/23) History of Present Illness I have reviewed HPI staff note, most recent labs and imaging, more than 30 minutes spent reviewing the chart, during encounter, placing orders and counseling the patient. Pt is sick to the stomach no appetitive constant sickness x 6 months hernandez snot get any better came with GERD every now and then nausea meds did not help much pt gags a lot pt does not puke Review of Systems PHQ Score Initial Depression Screen Score: 0 SCORE All systems reviewed, negative except as mentioned above Physical Exam Vitals & Measurements HR: 67(Peripheral) BP: 131/79 HT: 67 in HT: 170 cm WT: 63.5 kg WT: 139.7 lb BMI: 21.97 General: alert, no acute distress HEENT: atraumatic normocephalic Cardiovascular: regular rate and rhythm, normal peripheral perfusion Respiratory: Lungs CTA, respirations non labored Extremities: no deformity, no trauma Abdomen: Benign, soft, nontender nondistended Assessment/Plan 1. Nausea (R11.0: Nausea) Ordered: EGD Endoscopy (Hospital Procedure) 2. Chronic GERD (K21.9: Gastro-esophageal reflux disease without esophagitis) Ordered: EGD Endoscopy (Hospital Procedure) 3. Abdominal pain in male (R10.9: Unspecified abdominal pain) Ordered: EGD Endoscopy (Hospital Procedure) 4. Alcohol dependence in remission (F10.21: Alcohol dependence, in remission) Continue H2 na and antinausea medications Schedule EGD at the earliest convenience Advised to continue to abstain from drinking beers Follow-up No qualifying data available Problem List/Past Medical History Ongoing Abdominal pain Abdominal pain in male Alcohol dependence in remission Anxiety Chronic GERD Epigastric pain Nausea Nausea in adult Positive occult stool blood test Tobacco user Historical History of gross hematuria Procedure/Surgical History Colonoscopy (06/2020), Rotator cuff repair. Medications Abilify 5 mg Tab, 5 mg= 1 tab(s), Oral, Daily famotidine 20 mg Tab, 20 mg= 1 tab(s), Oral, BID ondansetron 4 mg Dis Tab, 4 mg= 1 tab(s), Oral, q6hr Wellbutrin XL 150 mg/24 hours Tab-ER, 150 mg= 1 tab(s), Oral, Daily Allergies No Known Allergies No Known Medication Allergies Social History Alcohol - Medium Risk, 12/06/2023 Current, Beer, Daily, 09/20/2023 Substance Abuse Current, Marijuana, 1-2 times per week, 09/20/2023 Tobacco Former smoker, quit more than 30 days ago Tobacco Use:. Current vaping or e-cigarette use Smokeless Tobacco Use:. Cigarettes, Vaping, 1.5 per day. Started age 16.0 Years. Stopped age 62 Years. Yes, 12/15/2023 Family History Heart disea (more content not included)... Normal [facility] Comment on above: Result Comment: Elec tronically Signed By: Leyla STEPHENS, Vandana Diaz\.br\Date and Time Signed: 12/15/23 14:03 EDT ED Note-Physicianon 12-09-19 ED Note-Physician ED Note-Physician Basic Information Time Seen: Edy Carranza PA-C 12/06/2023 13:19 Chief Complaint Pt states has been nauseated, dry heaving, abdominal pain x [address], ultrasound, which were negative a couple of months ago. Was supposed to have upper scope on 11/15, but didn't go. History of Present Illness Patient is a 63-year-old male that presents today for evaluation of his acute on chronic epigastric pain. He states that he has been nauseated with associated dry heaving and epigastric abdominal pain for the last 6 months. He has been in and out of the ER has had multiple CT scans as well as ultrasounds that were negative. He had a EGD scheduled with GI which she canceled and did not show up for because he was concerned for financial concerns. Ever since then he feels as though he regrets doing this because his pain is continuing to get worse. He is hoping to get rescheduled for this EGD with his GI specialist or referral for another GI specialist. Review of Systems No other aggravating or relieving factors no other associated symptoms no other prior treatments or complaints. Family: Reviewed and noncontributory Social: lives at home Review of systems negative unless otherwise specified in the HPI. Physical Exam Vitals & Measurements T: 37.1 ?C(Oral) HR: 65(Monitored) RR: 16 BP: 131/81 SpO2: 98% HT: 170 cm WT: 63.4 kg BMI: 21.94 General: The patient appears well and in no apparent distress. Patient is resting comfortably on cart. Skin: Warm, dry, no pallor noted. Head: Normocephalic, atraumatic Neck: No JVD Eye: PERRLA, EOMI ENT: Moist mucus membranes Cardiovascular: Regular rate and rhythm. Normal peripheral perfusion Respiratory: CTA bilaterally. No respiratory distress no accessory muscle use no obvious audible wheezing Chest Wall: no deformity Musculoskeletal: normal ROM, no deformity, no swelling GI: Soft no obvious distention. No rebound or rigidity. No guarding. No tenderness. Neurological: A&O moves all extremities equal strength and symmetry Psychiatric: Cooperative and appropriate Medical Decision Making Patient is a 63-year-old male who presents today for evaluation of his acute on chronic epigastric pain. He has had multiple CTs and ultrasounds of the abdomen and pelvis that have been negative for any intra-abdominal pathology. His last 1 was back in August which I reviewed. He was scheduled for EGD with GI but canceled due to financial concerns. On exam he is nontoxic appearing and afebrile. Soft, nontender abdomen with no evidence of distention or guarding. I spoke with the patient that I would recommend repeat CT of the abdomen and pelvis with IV contrast but the patient wants to hold off. Repeat blood work is WNL. After reevaluation he is feeling better. we discussed that he would likely benefit from the EGD which he will try to reschedule. I did provide him with Dr. Leyla IVERSON for follow-up and possible EGD if he is unable to get back with his specialist. Return to ED precautions were reviewed with the patient at length. Assessment/Plan Abdominal pain, epigastric (R10.13: Epigastric pain) GERD (gastroesophageal reflux disease) (K21.9: Gastro-esophageal reflux disease without esophagitis) Nausea (R11.0: Nausea) Orders: dicyclomine, 20 mg = 2 mL, Injection, IntraMuscular, Once, Stop date 12/06/23 13:39:00 EDT, STAT, Start date 12/06/23 13:39:00 EDT, 12/06/23 13:39:00 EDT famotidine, 20 mg = 1 tab(s), Oral, BID, X 14 day(s), # 28 tab(s), Refills(s) 0, Pharmacy: [facility] #[id number], 170, cm, 12/06/23 13:17:00 EDT, Height/Length Dosing, 63.4, kg, 12/06/23 13:17:00 EDT, Weight Dosing famotidine, 20 mg = 2 mL, Soln-IV, IV Push, Once, Stop date 12/06/23 13:39:00 EDT, STAT, Start date 12/06/23 13:39:00 EDT, 12/06/23 13:39:00 EDT ondansetron, 4 mg = 1 tab(s), Oral, q6hr, # 12 tab(s), Refills(s) 0, Pharmacy: [facility] #[id number], 170, cm, 12/06/23 13:17:00 EDT, Height/Length Dosing, 63.4, kg, 12/06/23 13:17:00 EDT, Weight Dosing ondansetron, 4 mg = 2 mL, Injection, IV Push, Once, Stop date 12/06/23 13:39:00 EDT, STAT, Start date 12/06/23 13:39:00 EDT, 12/06/23 13:39:00 EDT Sodium Chloride 0.9% intravenous solution, 1,000 mL, Soln-IV, IV, Once, Stop date 12/06/23 13:39:00 EDT, STAT, Start date 12/06/23 13:39:00 EDT, Infuse over 61, minute(s) Basic Metabolic Panel CBC w/ Auto Diff eGFR Extra Blue Tube Extra SST Tube Hepatic Function Panel Lipase Level Troponin 0 Hr. UA with Cult Rflx Medications Administered Given dicyclomine 10 mg/mL Inj, 20 mg, IntraMuscular famotidine 10 mg/mL IV Mery, 20 mg, IV Push NS 1000 ml Bolus, 1000 mL, IV ondansetron 4 mg/2 mL Inj, 4 mg, IV Push Disposition Plan Patient Discharge Condition Stable, improved Discharge Disposition Home Discharge Prescription List Prescriptions famotidine 20 mg Tab, 20 mg= 1 tab(s), Oral, BID ondansetron 4 mg Dis Tab, 4 mg= 1 tab(s), Oral, q6hr Follow-up With When Contact Informatio (more content not included)... Normal [facility] Comment on above: Result Comment: Elec tronically Signed By: Edy Carranza PA-C\.br\Date and Time Signed: 12/06/23 16:28 EDT\.br\Electronically Co-Signed By: James Stapleton DO\.darvin\Date and Time Co-Signed: 12/09/23 07:10 EDT CHEMISTRYOrdered By: Kaveh Vallecillo on 12-06-2023 Albumin [Mass/Vol] 4.5 g/dL Normal 3.3 - 5.0 gm/dL Remisol Chem Albumin/Globulin [Mass ratio] 1.6 {ratio} Normal 1.1 - 2.2 Remisol Chem ALP [Catalytic activity/Vol] 51 [iU]/d Normal 21 - 98 Int._Unit/ L Remisol Chem ALT No additional P-5'-P [Catalytic activity/Vol] 12 [iU]/d Normal 6 - 46 Int._Unit/ L Remisol Chem Anion gap [Moles/Vol] 12 mmol/L Normal 6 - 16 mEq/L Remisol Chem AST [Catalytic activity/Vol] 14 [iU]/d Normal 5 - 43 Int._Unit/ L Remisol Chem Bilirubin [Mass/Vol] 1.0 mg/dL Normal 0.0 - 1 .1 mg/dL Remisol Chem Bilirubin.direct [Mass/Vol] 0.2 mg/dL Normal 0.0 - 0.4 mg/dL Remisol Chem Bilirubin.indirect [Mass or moles/Vol] 0.8 mg/dL Normal 0.1 - 0.9 mg/dL Remisol Chem Calcium [Mass/Vol] 9.4 mg/dL Normal 8.9 - 11. 1 mg/dL Remisol Chem Chloride [Moles/Vol] 104 mmol/L Normal 101 - 1 11 mmol/L Remisol Chem CO2 [Moles/Vol] 28 mmol/L Normal 21 - 31 mmol/L Remisol Chem Creatinine [Mass/Vol] 0.9 mg/dL Normal 0.5 - 1.3 mg/dL Remisol Chem eGFR 96 mL/min/1.73 m2 Normal >=59mL/min /1.73 m2 Remisol Chem Globulin (S) [Mass/Vol] 2.9 g/dL Normal 1.4 - 4.0 gm/dL Remisol Chem Glucose [Mass/Vol] 101 mg/dL Normal 55 - 199 mg/dL Remisol Chem Lipase [Catalytic activity/Vol] 33 U/L Normal 13 - 58 unit/L Remisol Chem Potassium [Moles/Vol] 4.6 mmol/L Normal 3.5 - 5.3 mmol/L Remisol Chem Protein [Mass/Vol] 7.4 g/dL Normal 6.0 - 7.8 gm/dL Remisol Chem Sodium [Moles/Vol] 139 mmol/L Normal 135 - 145 mmol/L Remisol Chem Urea nitrogen [Mass/Vol] 14 mg/dL Normal 5 - 21 mg/dL Remisol Chem Urea nitrogen/Creatinine [Mass ratio] 16 mg/mg Normal 10 - 20 Remisol Chem CHEMISTRYOrdered By: SYSTEM SYSTEM on 12-06-2023 Troponin HS 2.60 pg/mL Low 15.90 - 38.40 pg/mL Remisol Chem Comment on above: Interpretive Data: T he 95% CI (Confidence Interval) PPV (Positive Predictive Value) for myocardial infarction in females is 38 pg/mL, in males 51 pg/mL. The results should be used in conjunction with clinical conditions of myocardial infarction. (Access High Sensitivity Troponin I Instructions For Use, Richard Vinja, December 2017) ED Clinical Summaryon 2023 ED Clinical Summary ED Clinical Summary [place] [id number] ED Clinical Summary Person Information Name: BELGICA FLANAGAN [facility] Age: 63 Years : 1960 Sex: Male Language: [place] Citizen PCP: Terri Bell MD Marital Status: Visit Id: Visit Reason: Medical problem - minor; Nausea; Abdominal pain; STOMACH PROBLEMS - SAYS SICK FOR PAST 6 MONTHS Speciality: Acuity: 3 Enc Type: Emergency Med Service: Emergency Arrival: 12/06/2023 13:10:04 Discharge: 12/06/2023 15:33:58 LOS: 000 02:23 Checkin: 12/06/2023 13:10:04 Checkout: 12/06/2023 15:33:58 Dispo Type: Home (Routine DC) EVENTS: Event Name Event Status Request Date/Time Start Date/Time Complete Date/Time Arrive Complete 12/06/2023 13:10:04 12/06/2023 13:10:04 12/06/2023 13:10:04 Document Home Meds Request 12/06/2023 13:10:04 Triage Complete 12/06/2023 13:10:04 12/06/2023 13:17:02 12/06/2023 13:17:02 Bed Assign Complete 12/06/2023 13:17:51 12/06/2023 13:17:51 12/06/2023 13:17:51 Dr Exam Complete 12/06/2023 13:17:51 12/06/2023 13:19:29 12/06/2023 13:19:29 RN Exam Complete 12/06/2023 13:17:51 12/06/2023 14:31:37 12/06/2023 14:31:37 Registration Complete 12/06/2023 13:19:29 12/06/2023 13:39:34 12/06/2023 13:39:34 Dr Exam Complete 12/06/2023 13:20:19 12/06/2023 13:20:19 12/06/2023 13:20:19 Reg Complete Request 12/06/2023 13:39:34 Reg Bed Request Complete 12/06/2023 13:39:34 12/06/2023 13:39:34 12/06/2023 13:39:34 Meds Admin Complete 12/06/2023 13:39:43 12/06/2023 13:56:42 Pending Labs Complete 12/06/2023 13:39:43 12/06/2023 14:50:26 Lab Complete 12/06/2023 13:39:43 12/06/2023 14:50:26 Pending Labs Complete 12/06/2023 13:54:04 12/06/2023 13:54:04 12/06/2023 14:50:26 Lab Complete 12/06/2023 13:54:04 12/06/2023 13:54:04 12/06/2023 14:50:26 Pending Labs Complete 12/06/2023 13:54:30 12/06/2023 13:54:30 12/06/2023 13:54:30 Discharge Complete 12/06/2023 15:23:04 12/06/2023 15:34:03 12/06/2023 15:34:03 Transfer Complete 12/06/2023 15:34:03 12/06/2023 15:34:03 12/06/2023 15:34:03 ADDRESS: [address] [place] [phone] PHYS DOC NOTES: MEDICAL INFORMATION: Prescriptions Given: New Medications [facility], [address] [place] [id number], [phone] famotidine (famotidine 20 mg Tab) 1 Tablets By Mouth 2 times a day for 14 Days. Refills: 0. ondansetron (ondansetron 4 mg Dis Tab) 1 Tablets By Mouth every 6 hours. Refills: 0. Medications to Continue with No Changes Other Medications aripiprazole (Abilify 5 mg Tab) 1 Tablets By Mouth every day. buPROPion (Wellbutrin XL 150 mg/24 hours Tab-ER) 1 Tablets By Mouth every day. PATIENT EDUCATION INFORMATION: Instructions: Abdominal Pain, Adult; Gastroesophageal Reflux Disease, Adult Follow up: With: Address: When: Vandana Mayer [facility] [address], [place] [phone] Business (1) In 3 days 12/09/2023 With: Address: When: Terri Hoy [address] [facility] [address] [place] [phone] Business (1) In 3 days DIAGNOSIS: Abdominal pain, epigastric; GERD (gastroesophageal reflux disease); Nausea Normal [facility] ED Patient Summaryon ED Patient Summary ED Patient Summary [place] [id number] Patient Discharge Instructions Person Information Name: BELGICA FLANAGAN Age: 63 Years Arrival Date: 12/06/2023 13:10:04 Discharge Diagnosis: Abdominal pain, epigastric; GERD (gastroesophageal reflux disease); Nausea Primary Care Physician: Terri Bell MD Provider Information Primary Provider: James Stapleton DO Advanced Clinical Data Management Manager:Edy Carranza PA-C The exam and treatment you received in the Emergency Department were for an urgent problem and are not intended as complete care. It is important that you follow up with a doctor, nurse practitioner, or physician?s advertising assistant for ongoing care. If your symptoms become worse or you do not improve as expected and you are unable to reach your usual health care provider, you should return to the Emergency Department. We are available 24 hours a day. BELGICA FLANAGAN has been given the following list of patient education materials, prescriptions and follow-up instructions: Follow-up Instructions: With: Address: When: Vandana Useunice [address], [place] [phone] [email or web address] (1) In 3 days 12/09/2023 With: Address: When: Terri Bell [address] [facility] [address] [place] [phone] Business (1) In 3 days In the event that this physician does not participate in your insurance network, please consult with your insurance company to find a nearby participating provider. Patient Education Materials: Abdominal Pain, Adult; Gastroesophageal Reflux Disease, Adult A MESSAGE TO ALL PATIENTS REGARDING OPIOIDS PRESCRIPTION OPIOIDS: WHAT YOU NEED TO KNOW Prescription opioids can be used to help relieve sonmfdal-fe-[id number] pain and are often prescribed following a surgery or injury, or for certain health conditions. These medications can be an important part of the treatment but also come with serious risks. It is important to work with your healthcare provider to make sure you are getting the safest, most effective care. WHAT ARE THE RISKS AND SIDE EFFECTS OF OPIOID USE? Prescription opioids carry serious risks of addiction and overdose, especially with prolonged use. An opioid overdose, often marked by slowed breathing, can cause sudden . The use of prescription opioids can have a number of side effects as well, even when taken as directed: ? Tolerance?meaning you might need to take more of the medication for the same pain relief ? Physical dependence?meaning you have symptoms of withdrawal when a medication is stopped ? Increased sensitivity to pain ? Constipation ? Nausea, vomiting, and dry mouth ? Sleepiness and dizziness ? Confusion ? Depression ? Low levels of testosterone that can result in lower sex drive, energy, and strength ? Itching and sweating RISKS ARE GREATER WITH: ? History of drug misuse, substance use disorder, or overdose ? Mental health conditions (such as depression or anxiety) ? Sleep apnea ? Older age (65 years and older) ? Avoid alcohol while taking prescription opioids. Also, unless specifically advised by your health care provider, medications to avoid include: ? Benzodiazepines (such as Xanax or Valium) ? Muscle relaxants (such as Soma or Flexeril) ? Hypnotics (such as Ambien or Lunesta) ? Other prescription opioids KNOW YOUR OPTIONS Talk to your health care provider about ways to manage your pain that don?t involve prescription opioids. Some of these options may actually work better and have fewer risks and side effects. Options may include: ? Pain relievers such as acetaminophen, ibuprofen, and naproxen ? Some medication that are also used for depression or seizures ? Physical therapy and exercise ? Cognitive behavioral therapy, a psychological, goal-directed approach, in which patients learn how to modify physical, behavioral, and emotional triggers of pain and stress. IF YOU ARE PRESCRIBED OPIOIDS FOR PAIN: ? Never take opioids in greater amounts or more often than prescribed. ? Follow up with your primary health care provider. o Work together to create a plan on how to manage your pain. o Talk about ways to help manage your pain that don?t involve prescription opioids. o Talk about any and all concerns and side effects. ? Help prevent misuse and abuse o Never sell or share prescription opioids. o Never use another person?s prescription opioids. ? Store prescription opioids in a secure place and out of reach of others (this may include visitors, children, friends, and family). ? Safely dispose of unused prescription opioids: Find your community drug take-back program or your pharmacy mail-back program, or flush them down the toilet, following guidance from the Food and Drug Administration (www.fda.gov/Drugs/Resour cesForYou). ? Visit www.cdc.gov/drugoverdose (more content not included)... Normal [facility] HEMATOLOGYOrdered By: SYSTEM SYSTEM on 12-06-2023 Basophils/100 WBC (Bld) 0.7 % Normal 0.0 - 2.0 % Remisol Heme Basophils/Leukocytes Auto (Bld) [Pure # fraction] 0.0 E9/L Normal 0.0 - 0.2 E9/L Remisol Heme Eosinophils (Bld) [#/Vol] 0.0 E9/L Normal 0. 0 - 0.5 E9/L Remisol Heme Eosinophils/100 WBC (Bld) 0.7 % Normal 0. 0 - 8.0 % Remisol Heme Erythrocyte distribution width (RBC) [Ratio] 13.5 % Normal 10.9 - 14.2 % Remisol Heme Hematocrit (Bld) [Volume fraction] 43.4 % Normal 37.7 - 49.0 % Remisol Heme Hemoglobin (Bld) [Mass/Vol] 14.8 g/dL Normal 13.5 - 17.5 gm/dL Remisol Heme Lymphocytes (Bld) [#/Vol] 1.7 E9/L Normal 1. 0 - 4.0 E9/L Remisol Heme Lymphocytes/100 WBC (Bld) 24.8 % Normal 14 .0 - 50.0 % Remisol Heme MCH (RBC) [Entitic mass] 30.4 pg Normal 27. 0 - 34.0 pg Remisol Heme MCHC (RBC) [Mass/Vol] 34.1 g/dL Normal 31.4 - 36.0 gm/dL Remisol Heme MCV (RBC) [Entitic vol] 89.2 fL Normal 80.0 - 100.0 fL Remisol Heme Monocytes (Bld) [#/Vol] 0.6 E9/L Normal 0.2 - 1.0 E9/L Remisol Heme Monocytes/100 WBC (Bld) 8.6 % Normal 4.0 - 14.0 % Remisol Heme Neutrophils (Bld) [#/Vol] 4.5 E9/L Normal 2. 0 - 7.5 E9/L Remisol Heme Neutrophils/100 WBC (Bld) 65.2 % Normal 36 .0 - 75.0 % Remisol Heme Platelet mean volume (Bld) [Entitic vol] 7.7 fL Normal 6.4 - 10.8 fL Remisol Heme Platelets (Bld) [#/Vol] 240.0 E9/L Normal 150. 0 - 500.0 E9/L Remisol Heme RBC (Bld) [#/Vol] 4.9 E12/L Normal 4.3 - 5.9 E12/L Remisol Heme WBC corrected for nucl RBC Auto (Bld) [#/Vol] 6.9 E9/L Normal 4.0 - 11.0 E9/L Remisol Heme URINALYSISOrdered By: SYSTEM SYSTEM on 12-06-2023 Bilirubin Ql (U) Negative Normal Negativemg /dL [facility] [place] Auto SS Clarity (U) Turbid *ABN* (12/06/23 1:57 PM) Invalid Interpretation Code Clear [facility] UA Auto SS Color (U) Yellow 1 (12/06/23 1:57 PM) Normal Yellow FT UA Auto SS Comment on above: Interpretive Data: M icroscopic readings are only performed on those samples that meet specific criteria set forth by [facility]. Epithelial cells.squamous Auto (Urine sed) [#/Area] 0-2 graded/HPF Invalid Interpretation Code [facility] UA Auto SS Glucose Ql (U) Negative Normal Negativemg /dL [facility] UA Auto SS Hemoglobin Auto test strip (U) [Mass/Vol] Negative Normal Negativemg /dL [facility] UA Auto SS Ketones Auto test strip Ql (U) Negative Normal Negativemg /dL FT UA Auto SS Leukocyte esterase Auto test strip Ql (U) Negative Normal NegativeLe u/uL FT UA Auto SS Mucus Auto Ql (U) 1+ graded/LPF Invalid Interpretation Code Negativegr aded/LPF FT UA Auto SS Nitrite Auto test strip Ql (U) Negative Normal Negativemg /dL [facility] UA Auto SS pH (U) 5.5 *NA* (12/06/23 1:57 PM) Invalid Interpretation Code 5.0 - 9.0 [facility] UA Auto SS Protein Ql (U) Negative Normal Negativemg /dL [facility] UA Auto SS RBC Ql (U) 31-75 graded/HPF Invalid Interpretation Code 0-3graded/ HPF [facility] UA Auto SS Specific gravity (U) [Rel density] 1.021 *NA* (12/06/23 1:57 PM) Invalid Interpretation Code 1.005 - 1.030 [facility] UA Auto SS Urobilinogen (U) [Mass/Vol] Negative Normal Negativemg /dL [facility] UA Auto SS URINALYSISOrdered By: Edy Carranza on 12-06-2023 UA Spec Desc Clean Catch (12/06/23 1:57 PM) Normal [facility] UA Auto SS eGFRon 12-06-2023 eGFR 96 mL/min/1.73 m2 Normal >=59 [facility] Comment on above: Order Comment: Order added by Discern Expert. Performed By: #### 1 [id number] ####[facility] [address] [place] [address] Insurance Correspondenceon 0 11-04-2023 Insurance Correspondence [id number]#[id number] Normal [facility] Consent for Procedure/Surger yon 09-22-2023 Consent for Procedure/Surgery [id number]#[id number] Normal [facility] Facesheeton 09-21-2023 Facesheet [id number]#1.00TIFF Normal [facility] RAD - CT Reporton 09-21-2023 RAD - CT Report [id number]#[id number] [facility] Ambulatory Visit Summaryon 0 09-20-2023 Ambulatory Visit Summary BELGICA FLANAGAN :1960 Visit Date:09/20/2023 Ambulatory Visit Instructions Your Diagnosis Epigastric pain Nausea in adult Your Care Team Attending Physician - JORGE STEPHENS, Antionette Suarez Primary Care Physician - Ray STEPHENS, Terri Referring Physician - Terri Bell MD This Is Your Medications List Contact prescribing physician if questions or concerns aripiprazole (Abilify 5 mg Tab) buPROPion (Wellbutrin XL 150 mg/24 hours Tab-ER) Procedures Performed Colonoscopy (06/2020), Rotator cuff repair. Discharge Vitals Heart Rate (Peripheral) 72 Respiratory Rate 16 Blood Pressure 144/84 Height 170 cm Height 67 in Weight 66 kg Weight 145.2 lb BMI 22.84 Medications What How Much When Instructions Unchanged aripiprazole (Abilify 5 mg Tab) 1 Tablets By Mouth Every day Contact prescribing physician if questions or concerns Unchanged buPROPion (Wellbutrin XL 150 mg/ 24 hours Tab-ER) 1 Tablets By Mouth Every day Contact prescribing physician if questions or concerns Allergies No Known Allergies No Known Medication Allergies Problems Ongoing - Any problem that you are currently receiving treatment for. Abdominal pain Anxiety Epigastric pain Nausea Nausea in adult Positive occult stool blood test Tobacco user Historical - Any problem that you are no longer receiving treatment for. History of gross hematuria Patient Survey You may receive a survey via text or e-mail asking about your office visit. Please share your experience with us by completing your survey. We appreciate your feedback and thank you for choosing us for your care. Yaneth [facility] Ambulatory Visit Summary BELGICA FLANAGAN :1960 Visit Date:09/20/2023 Ambulatory Visit Instructions Your Diagnosis Epigastric pain Nausea in adult Your Care Team Attending Physician - JORGE STEPHENS, Antionette Suarez Primary Care Physician - Ray STEPHENS, Terri Referring Physician - Terri Bell MD This Is Your Medications List Contact prescribing physician if questions or concerns aripiprazole (Abilify 5 mg Tab) buPROPion (Wellbutrin XL 150 mg/24 hours Tab-ER) Procedures Performed Colonoscopy (06/2020), Rotator cuff repair. Discharge Vitals Heart Rate (Peripheral) 72 Respiratory Rate 16 Blood Pressure 144/84 Height 170 cm Height 67 in Weight 66 kg Weight 145.2 lb BMI 22.84 Medications What How Much When Instructions Unchanged aripiprazole (Abilify 5 mg Tab) 1 Tablets By Mouth Every day Contact prescribing physician if questions or concerns Unchanged buPROPion (Wellbutrin XL 150 mg/ 24 hours Tab-ER) 1 Tablets By Mouth Every day Contact prescribing physician if questions or concerns Allergies No Known Allergies No Known Medication Allergies Problems Ongoing - Any problem that you are currently receiving treatment for. Abdominal pain Anxiety Epigastric pain Nausea Nausea in adult Positive occult stool blood test Tobacco user Historical - Any problem that you are no longer receiving treatment for. History of gross hematuria Patient Survey You may receive a survey via text or e-mail asking about your office visit. Please share your experience with us by completing your survey. We appreciate your feedback and thank you for choosing us for your care. [facility] Provider Letteron 09-20-2023 Provider Letter (Inserted Image. Magdalena ble to display) September 20, 2023 BELGICA FLANAGAN [address] [place] [id number] : 1960 To Whom It May Concern, Please excuse above patient from work. Date of Illness? appointment From: 09/20/23 To: 09/21/23 May Return to Work On:09/21/23 Restrictions: none Sincerely, Dr Antionette Horta [facility] RAD - Ultrasound Reporton RAD - Ultrasound Report [id number]#1.00TIFF [facility] Physician Referralon 024 Physician Referral [id number]#1.00TIFF [facility] XR shoulder RT min 2V*on XR shoulder RT min 2V* [facility] Main [address] [address] XRay Report Signed Patient: Belgica Flanagan JR MR#: [id number] : 1960 Acct:[id number] Age/Sex: 60 / M ADM Date: 02/26/21 Loc: [facility] Room: Type: [facility] Attending Dr: Kris Mcdowell MD Ordering Provider: Kris Mcdowell MD Date of Service: 02/26/21 XR/XR shoulder RT min 2V*: DJD of right AC (acromioclavicular) joint Copies to: Kris Mcdowell MD 3 views plain filmRIGHT shoulder HISTORY:Status post RIGHT shoulder rotator cuff repair COMPARISON:None [place] screws are in the humeral head. No fracture or dislocation. Arthrosis of the acromioclavicular joint is present. No soft tissue abnormality. XR/XR shoulder RT min 2V* IMPRESSION:Uncomplicated postsurgical changes. Impression dictated by: Osmany Blackman M.D.02/26/2021 12:18 PM Dictation Location: [place] [address] Transcribed By: [facility] 02/26/21 1218 Dictated By: Osmany Blackman DO 02/26/21 1212 Signed By: 02/26/21 1218 Normal [facility] COVID-19 FRon 02-16-2021 SARS-CoV-2 (COVID-19) RNA DIANNA+probe Ql (Unsp spec) Negative Normal Negative [facility] Comment on above: Order Comment: Healt hcare Worker?: N Result Comment: Testing for SARS-CoV-2 by RT-PCR This test was developed and its performance characteristics determined by [employer] and validated at the [facility]. This test has not been FDA cleared or approved. This test has been authorized by FDA under an Emergency Use Authorization (EUA). This test has been validated in accordance with the FDA's Guidance Document (Policy for Diagnostics Testing in Laboratories Certified to Perform High Complexity Testing under CLIA prior to Emergency Use Authorization for Coronavirus Disease-2019 during the Public Health Emergency) issued on August 30, 2019. This test is only authorized for the duration of time the declaration that circumstances exist justifying the authorization of the emergency use of in vitro diagnostic tests for detection of SARS-CoV-2 virus and/or diagnosis of COVID-19 infection under section 564(b)(1) of the Act, 21 U.S.C. 360bbb-3(b)(1), unless the authorization is terminated or revoked sooner. PERFORMED BY: [address] [place] [address] PATHOLOGIST BIT BENDER MYLES FAIRCHILD M.D. Performed By: #### C OVID 19 [facility] #### [address] Complete Blood Count Auto Di ffon 02-04-2021 Basophils (Bld) [#/Vol] 0.1 10*3/uL Normal 0.0-0.2 [facility] Comment on above: Result Comment: PERF ORMED BY: [place] [address] PATHOLOGIST BIT BENDER MYLES FAIRCHILD M.D. Performed By: #### C MP, CBC #### [address] Basophils/100 WBC (Bld) 0.7 % Normal . [facility] Comment on above: Performed By: #### C MP, CBC #### [address] Eosinophils (Bld) [#/Vol] 0.2 10*3/uL Normal 0.0-0.45 [facility] Comment on above: Performed By: #### C MP, CBC #### [address] Eosinophils/100 WBC (Bld) 2.3 % Normal . [facility] Comment on above: Performed By: #### C MP, CBC #### [address] Erythrocyte distribution width (RBC) [Ratio] 13.8 % Normal 12.0-14.8 [facility] Comment on above: Performed By: #### C MP, CBC #### [address] Hematocrit (Bld) [Volume fraction] 41.0 % Normal 38.8-50.0 [facility] Comment on above: Performed By: #### C MP, CBC #### [facility] [address] Hemoglobin (Bld) [Mass/Vol] 14.3 g/dL Normal 13.0-17.0 [facility] Comment on above: Performed By: #### C MP, CBC #### [facility] [address] Lymphocytes (Bld) [#/Vol] 2.5 10*3/uL Normal 1.00-4.8 [facility] Comment on above: Performed By: #### C MP, CBC #### [facility] [address] Lymphocytes/100 WBC (Bld) 32.6 % Normal . [facility] Comment on above: Performed By: #### C MP, CBC #### [facility] [address] MCH (RBC) [Entitic mass] 31.8 pg Normal 27.5-35.2 [facility] Comment on above: Performed By: #### C MP, CBC #### [facility] [address] MCV (RBC) [Entitic vol] 91.0 fL Normal 83.5-101 [facility] Comment on above: Performed By: #### C MP, CBC #### [facility] [address] Mean Corpuscular HGB Conc 35.0 g/dL Normal 32.5-35.6 [facility] Comment on above: Performed By: #### C MP, CBC #### [facility] [address] [place] [address] [place] Monocytes (Bld) [#/Vol] 0.6 10*3/uL Normal 0.0-0.8 [facility] Comment on above: Performed By: #### C MP, CBC #### [facility] [address] [place] [address] [place] Monocytes/100 WBC (Bld) 8.0 % Normal . [facility] Comment on above: Performed By: #### C MP, CBC #### [facility] [address] [place] [address] [place] Neutrophils (Bld) [#/Vol] 4.2 10*3/uL Normal 1.8-7.7 [facility] Comment on above: Performed By: #### C MP, CBC #### [facility] [address] [place] [id number] [place] Neutrophils/100 WBC (Bld) 56.4 % Normal . [facility] Comment on above: Performed By: #### C MP, CBC #### [facility] [address] [place] [address] [place] Nucleated RBC/100 WBC (Bld) [Ratio] 0.0 % Normal 0-0.5 [facility] Comment on above: Performed By: #### C MP, CBC #### [facility] [address] Platelet mean volume (Bld) [Entitic vol] 7.7 fL Normal 6.6-10.1 [facility] Comment on above: Performed By: #### C MP, CBC #### [facility] [address] [place] [address] [place] Platelets (Bld) [#/Vol] 219 10*3/uL Normal 150-450 [facility] Comment on above: Performed By: #### C MP, CBC #### [facility] [address] [place] [address] [place] RBC (Bld) [#/Vol] 4.50 10*6/uL Normal 3.90-5.60 [facility] Comment on above: Performed By: #### C MP, CBC #### [facility] [address] [place] [address] [place] WBC (Bld) [#/Vol] 7.5 10*3/uL Normal 4.5-11.0 [facility] Comment on above: Performed By: #### C MP, CBC #### [facility] [address] [place] [address] [place] Comprehensive Metabolic Pane jose r 09-08-2021 Albumin [Mass/Vol] 4.0 g/dL Normal 3.2-5.5 [facility] Comment on above: Performed By: #### C MP, CBC #### [address] Albumin/Globulin [Mass ratio] 1.5 {ratio} Normal [facility] Comment on above: Performed By: #### C MP, CBC #### [address] ALP [Catalytic activity/Vol] 56 U/L Normal 32-92 [facility] Comment on above: Result Comment: PERF ORMED BY: [place] [address] PATHOLOGIST BIT BENDER MYLES FAIRCHILD M.D. Performed By: #### C MP, CBC #### [address] ALT [Catalytic activity/Vol] 15 U/L Normal 10-60 [facility] Comment on above: Performed By: #### C MP, CBC #### [address] AST [Catalytic activity/Vol] 18 U/L Normal 10-42 [facility] Comment on above: Performed By: #### C MP, CBC #### [address] Bilirubin [Mass/Vol] 0.9 mg/dL Normal 0.3-1.2 [facility] Comment on above: Performed By: #### C MP, CBC #### [facility] [address] [place] [address] [place] Calcium [Mass/Vol] 9.1 mg/dL Normal 8.2-10.2 [facility] Comment on above: Performed By: #### C MP, CBC #### [address] Chloride [Moles/Vol] 104 mmol/L Normal 95-114 [facility] Comment on above: Performed By: #### C MP, CBC #### [place] [address] [place] CO2 [Moles/Vol] 25.6 mmol/L Normal 22.0-30.0 [facility] Comment on above: Performed By: #### C MP, CBC #### [facility] [address] Creatinine [Mass/Vol] 0.78 mg/dL Normal 0.64-1.27 [facility] Comment on above: Performed By: #### C MP, CBC #### [address] Estimated GFR ( Shannon > 60 [facility] Comment on above: Result Comment: GFR estimated reference range: According to KDOQI guidelines, <60 ml/min/1.73m2 is sufficient to diagnose a patient with chronic kidney disease. Performed By: #### C MP, CBC #### [address] Estimated GFR (Non- Am > 60 [facility] Comment on above: Performed By: #### C MP, CBC #### [address] Globulin (S) [Mass/Vol] 2.6 g/dL Normal [facility] Comment on above: Performed By: #### C MP, CBC #### [address] Glucose [Mass/Vol] 97 mg/dL Normal 70-100 [facility] Comment on above: Result Comment: [place] Glucose Reference Range is dependent on time and content of last meal. Glucose of more than 200 mg/dL in a nonstressed, ambulatory subject supports the diagnosis of Diabetes Mellitus. ADA recommended reference range Performed By: #### C MP, CBC #### [facility] [address] [place] [address] [place] Potassium [Moles/Vol] 3.6 mmol/L Normal 3.5-5.1 [facility] Comment on above: Performed By: #### C MP, CBC #### [address] Protein [Mass/Vol] 6.6 g/dL Normal 6.1-7.9 [facility] Comment on above: Performed By: #### C MP, CBC #### [facility] [address] [place] [address] [place] Sodium [Moles/Vol] 139 mmol/L Normal 136-146 [facility] Comment on above: Performed By: #### C MP, CBC #### [facility] [address] [place] [id number] [place] Urea nitrogen [Mass/Vol] 10 mg/dL Normal 9-23 [facility] Comment on above: Performed By: #### C MP, CBC #### [facility] [address] ECG 12 lead ECGon 02-04-2021 ECG 12 lead [place] [address] Electrocardiograph Report Signed Patient: Belgica Flanagan JR MR#: [id number] : 1960 Acct:[id number] Age/Sex: 60 / M ADM Date: 02/04/21 Loc: Room: Type: [facility] Attending Dr: Kris Mcdowell MD Ordering Provider: Kris Mcdowell MD Date of Service: 02/04/2101/17/1259 ECG/ECG 12 lead ECG: RIGHT SHOULDER ARTHROSCOPY, ROTATOR CUFF REPAIR Copies to: Test Reason : Blood Pressure : / mmHG Vent. Rate : 074 BPM Atrial Rate : 074 BPM P-R Int : 162 ms QRS Dur : 102 ms QT Int : 414 ms P-R-T Axes : 076 044 077 degrees QTc Int : 459 ms Normal sinus rhythm Normal ECG No previous ECGs available Confirmed by ROBERT WYATT DO ([id number]) on 02/04/2021 4:34:50 PM Referred By: RAY MCDOWELL Electronically Signed By:ROBERT WYATT DO Transcribed By: MUS Signed By Robert Wyatt DO 02/04 1634 Normal [facility] CT soft tissue neck w conon 01-05-2021 CT soft tissue neck w con [facility] [place] [address] CT Scan Report Signed Patient: Belgica Flanagan JR MR#: [id number] : 1960 Acct:[id number] Age/Sex: 60 / M ADM Date: 01/05/21 Loc: [facility] Room: Type: [facility] Attending Dr: Osmany Ahn DO Ordering Provider: Osmany Ahn DO Date of Service: 01/05/21 CT/CT soft tissue neck w con: Neck Pain;Neck pain Copies to: Osmany Ahn DO CT neck 01/05/2021. CLINICAL DATA: Right neck pain. TECHNIQUE: CT of the neck was performed with intravenous contrast. Axial, sagittal, and coronal reconstructions were created and reviewed. This CT exam was performed using one or more of the following dose reduction techniques: Automated exposure control, adjustment of the mA and/or kV according to patient size, or use of iterative reconstruction technique. COMPARISON: None. FINDINGS: A surface marker was used to designate the location of the patient's pain and is seen overlying the sternocleidomastoid in the right supraclavicular region. No solid or cystic neck mass is identified. No cervical lymphadenopathy is seen on the right or left. No localized soft tissue edematous changes or fluid collection is noted. The thyroid and salivary glands appear unremarkable. The orbital contents are normal and symmetrical. The paranasal sinuses and the right and left mastoids and middle ears appear unremarkable. There are cervical spondylosis and facet arthritis. Atherosclerotic changes are noted at the carotid bifurcations. The lung apices and the superior mediastinum appear unremarkable. CT/CT soft tissue neck w con IMPRESSION: 1. No visible neck mass or cervical lymphadenopathy. 2. Cervical spondylosis and facet arthritis. 3. Atherosclerotic changes. Impression dictated by: Walker Chambers Jr., M.D.01/05/2021 4:37 PM Dictation Location: [place] [address] Transcribed By: [facility] 01/05/21 677 Dictated By: Walker Chambers Jr, MD 01/05/21 3249 Signed By: 01/05/21 7762 [facility] MRI SHOULDER RT WO CONon MRI SHOULDER RT WO CON EXAMINATION: MRI SHOULDER RT WO CON HISTORY: Impingement syndrome of shoulder region COMPARISON: No relevant comparison available. TECHNIQUE: A variety of imaging planes and parameters were utilized for visualization of suspected pathology. Imaging was performed without contrast. FINDINGS: ROTATOR CUFF REGION CUFF TENDONS: Complete tear and 1.4 cm retraction of the supraspinatus tendon. Partial tear versus high-grade strain suspected of the subscapularis tendon. CUFF MUSCLES: Normal appearing muscles. DELTOID: Normal. No significant atrophy or tear. LONG BICEPS TENDON: Thin, but intact without abnormal surrounding fluid. LABRUM/BICEPS ANCHOR SUPERIOR: Normal. No visible labral tear or biceps anchor pathology. ANTERIOR/INFERIOR: Normal. No visible tear or attrition. POSTERIOR: Normal. No posterior labrum abnormality. CAPSULE Normal. No visible capsular laxity or thickening. AC JOINT REGION AC JOINT: Severe osteoarthropathy with moderate to severe narrowing of the underlying coracoacromial arch. AC LIGAMENTS: Normal acromioclavicular ligament. CC LIGAMENTS: Normal coracoclavicular ligaments. ACROMION: Normal horizontal (Type I) configuration. SUBACROMIAL BURSA: Moderate effusion. HYALINE CARTILAGE: Normal. No visible cartilage narrowing or focal defect. OTHER BONES: Normal proximal humerus, glenoid, and coracoid. OTHER OBSERVATIONS: Negative. No other significant findings or glenohumeral effusion. IMPRESSION: 1. Complete tear and retraction of the supraspinatus tendon and partial tear versus tendinopathy of the subscapularis tendon. 2. Marked degenerative changes of the acromioclavicular joint. Electronically authenticated by: NICHOLAS HALE Date: 2020-11-17 17:08 Normal [facility] XR ARTHRO SHLD RTon 11-18-19 21 XR ARTHRO SHLD RT EXAMINATION: XR ARTH RO SHLD RT HISTORY: Impingement syndrome of shoulder region COMPARISON: No relevant comparison available. TECHNIQUE: An arthrogram was performed under fluoroscopic guidance using non-ionic contrast material in the usual sterile manner after obtaining informed consent. Standard level fluoroscopic mode of operation utilized. FINDINGS: JOINT: NEEDLE: 25 gauge, 3.5 spinal needle. MEDICATION: Approximately 10 mL injected into joint space consisting of a mixture of 10 cc normal saline, 5 cc Omnipaque-300, 5 cc 1% Xylocaine and 0.2 cc Dotarem. TECHNIQUE: Anterior approach under fluoroscopic guidance. CLINICAL: Near complete resolution of pain following the injection. COMPLICATIONS: None. BONES: Prominent degenerative changes of the acromioclavicular joint. BURSA: No visible extension of contrast into the subacromial-subdeltoid bursa at this time. OTHER: Negative. IMPRESSION: 1. Technically successful arthrogram without complication. 2. Please see separate MRI arthrogram report. Electronically authenticated by: NICHOLAS HALE Date: 2020-11-17 13:46 Normal [facility] XR CSPINE MIN 4 VIEWSon 10-29 XR CSPINE MIN 4 VIEWS EXAMINATION: XR CS PINE MIN 4 VIEWS HISTORY: Degeneration of cervical intervertebral disc COMPARISON: No relevant comparison available. FINDINGS: BONES: Reversal of the normal lordotic curvature from C2 to C5. Mild grade 1 retrolisthesis of C4-C5 and C5 on C6. Mild height reduction of C4 and C5; suspect chronic degenerative changes rather than compression fractures. Multilevel moderate marked degenerative facet arthropathy. DISC SPACES: Marked narrowing C4-C5, C5-C6. Mild narrowing C6-C7. PARASPINOUS: Negative. No paraspinous abnormality is seen. OTHER: Negative. IMPRESSION: 1. Multilevel marked degenerative changes of the cervical spine. Consider MRI for further evaluation. 2. No appreciable acute abnormality. No comparison studies. Electronically authenticated by: NICHOLAS HALE Date: 2020-11-17 12:54 Normal [facility] XR FOREIGN BODY EYEon 2020 XR FOREIGN BODY EYE EXAMINATION: XR FORE IGN BODY EYE HISTORY: Foreign body in eye COMPARISON: No relevant comparison available. FINDINGS: ORBITS: Negative for a metallic foreign body. OTHER: Negative. IMPRESSION: 1. No metallic foreign body within the orbits. Electronically authenticated by: NICHOLAS HALE Date: 2020-11-17 12:50 Normal [facility] Covid-19 PCR (CVDTBH)on EUA Statement SEE BELOW Normal [facility] Comment on above: Result Comment: This test is not yet approved or cleared by the [place] FDA. When there are no FDA-approved or cleared tests available, and other criteria are met, FDA can make tests available under an emergency access mechanism called an Emergency Use Authorization (EUA). The EUA for this test is supported by the [employer] of Health and Human Service?s (HHS?s) declaration that circumstances exist to justify the emergency use of in vitro diagnostics for the detection and/or diagnosis of the virus that causes COVID-19. This EUA will remain in effect (meaning this test can be used) for the duration of the COVID-19 declaration justifying emergency of IVDs, unless it is terminated or revoked by FDA (after which the test may no longer be used). When diagnostic testing is negative, the possibility of a false negative should be considered in the context of a patients recent exposures and the presence of clinical signs and symptoms consistent with SARS-CoV-2. Performed By: #### C VDTB #### [facility] [address] [place] [id number] Schuyler López SARS-CoV-2 (COVID-19) RNA DIANNA+probe Ql (Unsp spec) Not detected Normal NOT DETECTED [facility] Comment on above: Result Comment: This test is not yet approved or cleared by the [place] FDA. When there are no FDA-approved or cleared tests available, and other criteria are met, FDA can make tests available under an emergency access mechanism called an Emergency Use Authorization (EUA). The EUA for this test is supported by the [employer] of Health and Human Service's (HHS's) declaration that circumstances exist to justify the emergency use of in vitro diagnostics for the detection and/or diagnosis of the virus that causes COVID-19. This EUA will remain in effect (meaning this test can be used) for the duration of the COVID-19 declaration justifying emergency of IVDs, unless it is terminated or revoked by FDA (after which the test may no longer be used). Performed By: #### C VDTB #### [facility] [address], [place] [address] Schuyler López Vital Signs Date Time Vital Sign Value Performing Clinician Facility 12-16-2023 09:11-0400 Diastolic blood pressure 76 mm[Hg] Vandana Mayer [facility] 12-16-2023 09:11-0400 Heart rate 62 /min Vandana Mayer [facility] 12-16-2023 09:11-0400 Mean blood pressure 93 mm[Hg] Mohamad Mouchli [facility] 12-16-2023 09:11-0400 Respiratory rate 18 /min Mohamad Mouchli [facility] 12-16-2023 09:11-0400 SaO2% (BldA) [Mass fraction] 98 % Mohamad Mouchli [facility] 12-16-2023 09:11-0400 Systolic blood pressure 126 mm[Hg] Mohamad Mouchli [facility] 12-16-2023 09:00-0400 Diastolic blood pressure 72 mm[Hg] Mohamad Mouchli [facility] 12-16-2023 09:00-0400 Heart rate 67 /min Mohamad Mouchli [facility] 12-16-2023 09:00-0400 Mean blood pressure 87 mm[Hg] Mohamad Mouchli [facility] 12-16-2023 09:00-0400 Respiratory rate 15 /min Mohamad Mouchli [facility] 12-16-2023 09:00-0400 SaO2% (BldA) [Mass fraction] 91 % Mohamad Mouchli [facility] 12-16-2023 09:00-0400 Systolic blood pressure 117 mm[Hg] Mohamad Mouchli [facility] 12-16-2023 08:55-0400 Diastolic blood pressure 67 mm[Hg] Mohamad Mouchli [facility] 12-16-2023 08:55-0400 Heart rate 65 /min Mohamad Mouchli [facility] 12-16-2023 08:55-0400 Mean blood pressure 85 mm[Hg] Mohamad Mouchli [facility] 12-16-2023 08:55-0400 Respiratory rate 17 /min Mohamad Mouchli [facility] 12-16-2023 08:55-0400 SaO2% (BldA) [Mass fraction] 99 % Mohamad Mouchli [facility] 12-16-2023 08:55-0400 Systolic blood pressure 121 mm[Hg] Mohamad Mouchli [facility] 12-16-2023 08:46-0400 Body temperature 97.7 [degF] Mohamad Mouchli [facility] 12-16-2023 08:35-0400 Respiratory rate 12 /min Mohamad Mouchli [facility] 12-16-2023 07:23-0400 Blood Pressure Location Mohamad Mouchli [facility] 12-16-2023 07:23-0400 Body temperature 97.52 [degF] Mohamad Mouchli [facility] 12-15-2023 13:39-0400 Diastolic blood pressure 79 mm[Hg] Mohamad Mouchli [facility] 12-15-2023 13:39-0400 Mean blood pressure 96 mm[Hg] Mohamad Mouchli [facility] 12-15-2023 13:39-0400 Systolic blood pressure 131 mm[Hg] Mohamad Mouchli [facility] 12-15-2023 13:32-0400 Blood Pressure Location Mohamad Mouchli [facility] 12-15-2023 13:32-0400 Diastolic blood pressure 79 mm[Hg] Mariod Mouchli [facility] 12-15-2023 13:32-0400 Heart rate 67 /min Mariod Mouchli [facility] 12-15-2023 13:32-0400 Systolic blood pressure 158 mm[Hg] Mariod Mouchli [facility] 12-06-2023 15:15-0400 Diastolic blood pressure 79 mm[Hg] James Daya [facility] 12-06-2023 15:15-0400 Heart rate 59 /min James Daya [facility] 12-06-2023 15:15-0400 Mean blood pressure 102 mm[Hg] James Daya [facility] 12-06-2023 15:15-0400 Respiratory rate 16 /min James Daya [facility] 12-06-2023 15:15-0400 SaO2% (BldA) [Mass fraction] 100 % James Daya [facility] 12-06-2023 15:15-0400 Systolic blood pressure 148 mm[Hg] James Daya [facility] 12-06-2023 14:15-0400 Diastolic blood pressure 81 mm[Hg] James Daya [facility] 12-06-2023 14:15-0400 Heart rate 65 /min James Daya [facility] 12-06-2023 14:15-0400 Mean blood pressure 98 mm[Hg] James Daya [facility] 12-06-2023 14:15-0400 Respiratory rate 16 /min James Stapleton [facility] 12-06-2023 14:15-0400 SaO2% (BldA) [Mass fraction] 98 % James Chaue [facility] 12-06-2023 14:15-0400 Systolic blood pressure 131 mm[Hg] James Chaue [facility] 12-06-2023 13:13-0400 Body temperature 98.78 [degF] James Chaue [facility] 12-06-2023 13:13-0400 Diastolic blood pressure 94 mm[Hg] James Chaue [facility] 12-06-2023 13:13-0400 Heart rate 80 /min James Chaue [facility] 12-06-2023 13:13-0400 Respiratory rate 16 /min James Stalpeton [facility] 12-06-2023 13:13-0400 SaO2% (BldA) [Mass fraction] 98 % James Chaue [facility] 12-06-2023 13:13-0400 Systolic blood pressure 157 mm[Hg] James Chaue [facility] 09-20-2023 15:26-0400 Blood Pressure Location Antionette NILL [facility] 09-20-2023 15:26-0400 Diastolic blood pressure 84 mm[Hg] Antionette NILL [facility] 09-20-2023 15:26-0400 Heart rate 72 /min Antionette NILL [facility] 09-20-2023 15:26-0400 Respiratory rate 16 /min Antionette HORTA [facility] 09-20-2023 15:26-0400 Systolic blood pressure 144 mm[Hg] Antionette HORTA [facility] Encounters Encounter Date Encounter Type Care Provider Facility Start: 02-04-2024 End: 02-04-2024 ambulatory Vandana Mayer [place] [place]: 02-04-2024 End: 02-04-2024 Patient encounter procedure Vandana Mayer [facility] Start: 12-16-2023 End: 12-16-2023 ambulatory Vandana Mayer [place] Start: 12-16-2023 End: 12-16-2023 Patient encounter procedure Vandana Mayer [facility] Start: 12-15-2023 End: 12-15-2023 ambulatory Vandana Mayer Facility:[facility] Start: 12-15-2023 End: 12-15-2023 Patient encounter procedure Vandana Mayer [facility] Start: 12-06-2023 [facility]ulatory [facility] Start: 12-06-2023 End: 12-06-2023 Emergency department patient visit James Stapleton [facility] Start: 09-20-2023 End: 09-20-2023 ambulatory Terri Bell [facility] Start: 09-20-2023 End: 09-20-2023 Patient encounter procedure Antionette HORTA [facility] Start: 03-26-2021 ambulatory KRIS MCDOWELL Facility:[facility] Start: 02-19-2021 End: 05-26-2021 ambulatory KRIS MCDOWELL Facility:[facility] Start: 01-08-2021 ambulatory KRIS MCDOWELL Facility:[facility] Start: 11-17-2020 End: 11-17-[address] TERRI BELL Facility:[facility] Start: 11-04-[address] TERRI BELL Facility :[facility] Start: 07-09-2020 Encounter for preprocedural laboratory examination DR ANTIONETTE HORTA [facility] Start: 07-09-2020 End: 07-09-[address] ANTIONETTE HORTA Facility:[facility] Start: 07-05-2020 End: 07-05-[address] ANTIONETTE HORTA Facility:[facility] Start: 07-05-2020 End: 07-05-2020 Encounter for preprocedural laboratory examination DR ANTIONETTE HORTA Facility:[facility] Procedures Date Procedure Procedure Detail Performing Clinician Start: 12-16-2023 Esophagogastroduodenoscopy Vandana dawson Start: 06-30-2020 Colonoscopy Antionette HORTA Repair of musculoten dinous cuff of shoulder Antionette HORTA Immunizations Immunization Date Immunization Notes Care Provider Fa cility 10-03-2020 SARS-CoV-2 (COVID-19 ) mRNA BNT-162b2 vax Antionette HORTA [facility] 09-12-2020 SARS-CoV-2 (COVID-19 ) mRNA BNT-162b2 vax Antionette HORTA [facility] NEGATED: Highlighted row has not occurred!06-25-2020 influenza virus vaccine, unspecified formulation Antionette HORTA [facility] Payers Date Payer Category Payer Private Health Insurance [id number] 1960 Unknown [id number] 2.16.84 [id number] 1960 Unknown [id number] 2.16.84 [id number] 1960 Unknown [id number] 2.16.84 [id number] 1960 Unknown [id number] 2.16.84 [id number] 1960 Unknown [id number] 2.16.84 [id number] 1960 Unknown [id number] 2.16.84 [id number] 1960 Unknown [id number] 2.16.84 [id number] 1960 Unknown [id number] 2.16.8 [id number] 1960 Unknown [id number] 2.16.8 [id number] 1960 Unknown [id number] 2.16.8 [id number] 1960 Unknown [id number] 2.16.8 [id number] 1960 Unknown [id number] 2.16.8 [id number] 1959 Private Health Insurance [id number] Self-pay 1959 Unknown [id number] Social History Date Type Detail Facility Start: 09-20-2023 End: 12-15-2023 Tobacco smoking status Ex-smoker (finding) [facility] Sex Assigned At Male [facility] Functional Status Date Assessment Result Facility 12-16-2023 Functional Status N/A [facility] 12-15-2023 Functional Status N/A [facility] 12-06-2023 Functional Status N/A [facility] 04-23-2024 Functional Status N/A [facility] Clinical Notes 07-09-2020 to 02-04-2024 Note Date & Type Note Facility 02-04-2024 Evaluation + Plan note Diagnostic Tests PendingH. pylori Stool Ag 02/04/24 [facility] 12-16-2023 Evaluation + Plan note Extrac toña from: Title:ANES Post-operative Note - General Author: Jimenez Junior Jr., DO Date:12/16/23 Plan Transfer/Discharge: Transfer/Discharge Discharge when meets criteria ( From PACU to Ambulatory Surgery Unit, and To home ). Extracted from: Title:ANES Pre-operative Note - Endo Author:Jimenez Ramos Jr., DO Date:12/16/23 Plan [place] [employer] (ASA) physical status classification: Class III. Anesthetic Preoperative Plan: Anesthesia General, and -TIVA. [facility]07-19-2024 Hospital Discharge instructions Patient Education 12/16/2023 08:54:29 Hiatal Hernia Hiatal Hernia A hiatal hernia occurs when part of the stomach slides above the muscle that separates the abdomen from the chest (diaphragm). A person can be born with a hiatal hernia (congenital), or it may develop over time. In almost all cases of hiatal hernia, only the top part of the stomach pushes through the diaphragm. Many people have a hiatal hernia with no symptoms. The larger the hernia, the more likely it is that you will have symptoms. In some cases, a hiatal hernia allows stomach acid to flow back into the tube that carries food from your mouth to your stomach (esophagus). This may cause heartburn symptoms. The development of heartburn symptoms may mean that you have a condition called gastroesophageal reflux disease (GERD). What are the causes? This condition is caused by a weakness in the opening (hiatus) where the esophagus passes through the diaphragm to attach to the upper part of the stomach. A person may be born with a weakness in thehiatus, or a weakness can develop over time. What increases the risk? This condition is more likely to develop in: Older people. Age is a major risk factor for a hiatal hernia, especially if you are over the age of50. women. People who are overweight. People who have frequent constipation. What are the signs or symptoms? Symptoms of this condition usually develop in the form of GERD symptoms. Symptoms include: Heartburn. Upset stomach (indigestion). Trouble swallowing. Coughing or wheezing. Wheezing is making high-pitched whistling sounds when you breathe. Sore throat. Chest pain. Nausea and vomiting. How is this diagnosed? This condition may be diagnosed during testing for GERD. Tests that may be done include: X-rays of your stomach or chest. An upper gastrointestinal (GI) series. This is an X-ray exam of your GI tract that is taken after you swallow a chalky liquid that shows up clearly on the X-ray. Endoscopy. This is a procedure to look into your stomach using a thin, flexible tube that has a tiny camera and light on the end of it. How is this treated? This condition may be treated by: Dietary and lifestyle changes to help reduce GERD symptoms. Medicines. These may include: ?Apzb-tah-rxutftn antacids. ?Medicines that make your stomach empty more quickly. ?Medicines that block the production of stomach acid (H2 blockers). ?Stronger medicines to reduce stomach acid (proton pump inhibitors). Surgery to repair the hernia, if other treatments are not helping. If you have no symptoms, you may not need treatment. Follow these instructions at home: Lifestyle and activity Do not use any products that contain nicotine or tobacco. These products include cigarettes, chewing tobacco, and vaping devices, such as e-cigarettes. If you need help quitting, ask your health careprovider. Try to achieve and maintain a healthy body weight. Avoid putting pressure on your abdomen. Anything that puts pressure on your abdomen increases the amount of acid that may be pushed up into your esophagus. ?Avoid bending over, especially after eating. ?Raise the head of your bed by putting blocks under the legs. This keeps your head and esophagus higher than your stomach. ?Do not wear tight clothing around your chest or stomach. ?Try not to strain when having a bowel movement, when urinating, or when lifting heavy objects. Eating and drinking Avoid foods that can worsen GERD symptoms. These may include: ?Fatty foods, like fried foods. ?[place] fruits, like oranges or lemon. ?Other foods and drinks that contain acid, like orange juice or tomatoes. ?Spicy food. ?Chocolate. Eat frequent small meals instead of three large meals a day. This helps prevent your stomach from getting too full. ?Eat slowly. ?Do not lie down right after eating. ?Do not eat 1 2 hours before bed. Do not drink beverages with caffeine. These include cola, coffee, cocoa, and tea. Do not drink alcohol. General instructions Take jipr-eak-dehqufo and prescription medicines only as told by your health care provider. Keep all follow-up visits. Your health care provider will want to check that any new prescribed medicines are helping your symptoms. Contact a health care provider if: Your symptoms are not controlled with medicines or lifestyle changes. You are having trouble swallowing. You have coughing or wheezing that will not go away. Your pain is getting worse. Your pain spreads to your arms, neck, jaw, teeth, or back. You feel nauseous or you vomit. Get help right away if: You have shortness of breath. You vomit blood. You have bright red blood in your stools. You have black, tarry stools. These symptoms may be an emergency. Get help right away. Call 911. Do not wait to see if the symptoms will go away. Do not drive yourself to the hospital. Summary A hiatal hernia occurs when part of the stomach slides above the muscle that separates the abdomen from the chest. A person may be born with a weakness in the hiatus, or a weakness can develop over time. Symptoms of a hiatal hernia may include heartburn, trouble swallowing, or sore throat. Management of a hiatal hernia includes eating frequent small meals instead of three large meals a day. Get help right away if you vomit blood, have bright red blood in your stools, or have black, tarry stools. This information is not intended to replace advice given to you by your health care provider. Make sure you discuss any questions you have with your health care provider. Document Revised: 07/13/2022 Document Reviewed: 07/13/2022 [employer] Patient Education 2022 [employer]. 12/16/2023 08:54:26 Junior's Esophagus Junior's Esophagus Junior's esophagus occurs when the tissue that lines the esophagus changes or becomes damaged. Theesophagus is the tube that carries food from the throat to the stomach. With Junior's esophagus, the cells that line the esophagus are replaced by cells that are similar to the lining of the intestines (intestinal metaplasia). Junior's esophagus itself may not cause any symptoms. However, many people who have Junior's esophagus also have gastroesophageal reflux disease (GERD), which may cause symptoms such as heartburn. Over time, a few people with this condition may develop cancer of the esophagus. Treatment may include medicines, procedures to destroy the abnormal cells, or surgery. What are the causes? The exact cause of this condition is not known. In some cases, the condition develops from damage to the lining of the esophagus caused by gastroesophageal reflux disease (GERD). GERD occurs when stomach acids flow up from the stomach into the esophagus. Frequent symptoms of GERD may cause intestinal metaplasia or cause cell changes (dysplasia). What increases the risk? You are more likely to develop this condition if you: Have GERD. Are male. Are of descent. Are obese. Are older than 50. Have a hiatal hernia. This is a condition in which part of your stomach bulges into your chest. Smoke. What are the signs or symptoms? People with Junior's esophagus often have no symptoms. However, many people with this condition also have GERD. Symptoms of GERD may include: Heartburn. Difficulty swallowing. Dry cough. How is this diagnosed? This condition may be diagnosed based on: Results of an upper gastrointestinal endoscopy. For this exam, a thin, flexible tube with a light and a camera on the end (endoscope) is passed down your esophagus. Your health care provider can viewthe inside of your esophagus during this procedure. Results of a biopsy. For this procedure, several tissue samples are removed (biopsy) from your esophagus to look at under a microscope. They are then checked for intestinal metaplasia or dysplasia. How is this treated? Treatment for this condition may include: Medicines (proton pump inhibitors, or PPIs) to decrease or stop GERD. Periodic endoscopic exams to make sure that cancer is not developing. A procedure or surgery for dysplasia. This may include: ?Removal or destruction of abnormal cells. ?Removal of part of the esophagus. Follow these instructions at home: Eating and drinking Eat more fruits and vegetables. Avoid fatty foods. Eat small, frequent meals instead of large meals. Avoid foods that cause heartburn. These foods include: ?Coffee and alcoholic drinks. ?Tomatoes and foods made with tomatoes. ?[place] or spicy foods. ?Chocolate and peppermint. Do not drink alcohol. General instructions Take xxvo-syo-juzvrbe and prescription medicines only as told by your health care provider. Do not use any products that contain nicotine or tobacco, such as cigarettes, e- cigarettes, and chewing tobacco. If you need help quitting, ask your health care provider. If you are being treated for GERD, make sure you take medicines and follow all instructions as toldby your health care provider. Keep all follow-up visits as told by your health care provider. This is important. Contact a health care provider if: You have heartburn or GERD symptoms. You have difficulty swallowing. Get help right away if: You have chest pain. You are unable to swallow. You vomit blood or material that looks like coffee grounds. Your stool (feces) is bright red or dark. These symptoms may represent a serious problem that is an emergency. Do not wait to see if the symptoms will go away. Get medical help right away. Call your local emergency services (911 in the [place] Do not drive yourself to the hospital. Summary Junior's esophagus occurs when the tissue that lines the esophagus changes or becomes damaged. Junior's esophagus may be diagnosed with an upper gastrointestinal endoscopy and a biopsy. Treatment may include medicines, procedures to remove abnormal cells, or surgery. Follow your health care provider's instructions about what to eat and drink, what medicines to take, and when to call for help. This information is not intended to replace advice given to you by your health care provider. Make sure you discuss any questions you have with your health care provider. Document Revised: 08/02/2020 Document Reviewed: 08/02/2020 [employer] Patient Education 2022 [employer]. 12/16/2023 08:54:23 Duodenitis Duodenitis Duodenitis is inflammation of the lining of the first part of the small intestine (duodenum). It iscommonly caused by an infection from bacteria, which may also lead to open sores (ulcers) in the intestine. Duodenitis may develop suddenly and last for a short time (acute), or it may develop gradually and last for months or years (chronic). What are the causes? The most common cause of duodenitis is an infection from a type of bacteria called Helicobacter pylori (H. pylori). Other causes of this condition include: Long-term use of NSAIDs. Excessive use of alcohol. An infection of the small intestine caused by the Giardia parasite (giardiasis). Crohn's disease. Certain diseases of the body's defense system (immune system). Certain treatments for cancer. What increases the risk? The following factors may make you more likely to develop this condition: Smoking cigarettes. Drinking alcohol. Having a family history of duodenitis. Taking NSAIDs. Eating a high-fat diet. What are the signs or symptoms? Symptoms of this condition may include: Gnawing or burning pain in the upper center of the abdomen (epigastric pain). This may get worse when the stomach is empty and may get better after eating. Abdominal cramps. Nausea and vomiting. Bloody vomit. Stools that are bloody, dark, or look like tar. Diarrhea. Weight loss. Fatigue. How is this diagnosed? This condition may be diagnosed based on your medical history and a physical exam. You may also have tests, such as: Blood tests. Stool tests. A test that checks the gases in your breath. An X-ray that is done after you swallow a liquid (barium) that makes your digestive tract easier tosee. Endoscopy. This is an exam of the duodenum that is done by putting a thin tube with a tiny camera on the end (endoscope) down your throat. A sample of tissue from your duodenum (biopsy) may be removed with the endoscope and examined under a microscope for signs of inflammation and infection. How is this treated? Treatment depends on the cause of your condition. Treatment may include: Antibiotic medicine to treat H. pylori infection. Stopping your intake of NSAIDs. Medicine to reduce stomach acids. Medicines to treat other conditions, such as Crohn's disease or giardiasis. Surgery to treat severe inflammation that causes scarring or severe bleeding. Follow these instructions at home: Medicines Take yxvj-zpo-lugglew and prescription medicines only as told by your health care provider. If you were prescribed an antibiotic medicine, take it as told by your health care provider. Do notstop taking the antibiotic even if you start to feel better. Eating and drinking Eat small, frequent meals. Do not drink alcohol. Drink enough water to keep your urine pale yellow. Follow instructions from your health care provider about eating or drinking restrictions. You may be asked to avoid: ?Caffeinated drinks. ?Chocolate. ?Peppermint or mint-flavored food or drinks. ?Garlic or onions. ?Spicy foods. ?[place] fruits. ?Tomato-based foods. ?Fatty or fried foods. General instructions Do not use any products that contain nicotine or tobacco, such as cigarettes and e-cigarettes. If you need help quitting, ask your health care provider. Keep all follow-up visits as told by your health care provider. This is important. Contact a health care provider if: You have a fever. Your symptoms come back, get worse, or do not get better with treatment. Get help right away if: You vomit blood. You have severe abdominal pain. Your abdomen swells and is painful. You have a lot of blood in your stool. You feel dizzy or light-headed. Summary Duodenitis is inflammation of the lining of the first part of the small intestine. This part of thesmall intestine is called the duodenum. Duodenitis may develop suddenly and last for a short time (acute), or it may develop gradually and last longer (chronic). The most common cause of duodenitis is an infection from a type of bacteria. Take wpjc-hmm-uwbpazd and prescription medicines only as told by your health care provider. This information is not intended to replace advice given to you by your health care provider. Make sure you discuss any questions you have with your health care provider. Document Revised: 11/24/2021 Document Reviewed: 11/25/2021 [employer] Patient Education 2022 [employer]. 12/16/2023 08:54:21 Endoscopy, Care After Procedure [facility] [place] [place] Endoscopy Care After Procedure Please read the instructions outlined below and refer to this sheet in the next few weeks. These discharge instructions provide you with general information on caring [facility] Your doctor may also give you specific instructions. While your treatment has been planned according to the most current medical practices available, unavoidable complications occasionally occur. If you have any problems or questions after discharge, please call your doctor. ACTIVITY You may resume your regular activity but move at a slower pace for the next 24 hours. Take frequent rest periods for the next 24 hours. Walking will help expel (get rid of) the air and reduce the bloated feeling in your abdomen. No driving for 24 hours (because of the anesthesia (medicine) used during the test). You may shower. Do not sign any important legal documents or operate any machinery for 24 hours (because of the anesthesia used during the test). NUTRITION Drink plenty of fluids. You may resume your normal diet. Begin with a light meal and progress to your normal diet. Avoid alcoholic beverages for 24 hours or as instructed by your caregiver. MEDICATIONS You may resume your normal medications unless your caregiver tells you otherwise. WHAT YOU CAN EXPECT TODAY You may experience abdominal discomfort such as a feeling of fullness or gas pains. FOLLOW-UP Your doctor will discuss the results of your test with you. SEEK IMMEDIATE MEDICAL ATTENTION IF ANY OF THE FOLLOWING OCCUR: Excessive nausea (feeling sick to your stomach) and/or vomiting. Severe abdominal pain and distention (swelling). Trouble swallowing. Temperature over 100 F (37.8 C). Rectal bleeding or vomiting of blood. Document Released: 12/28/2004 Document Re-Released: 11/07/2006 ExitCare Patient Information 2009 [employer]. Follow Up Care 12/15/2023 14:15:37 With:Leyla STEPHENS, Vandana Diaz, [facility], [facility] Address: When: Unknown Comments:Call for any problems. The office will reach out in about one week from procedure date. [facility]07-19-2024 NoteProgress Note-Physician Patient: BELGICA FLANAGAN Age: 63 years Sex: Male : 1960 Associated Diagnoses: None Author: Jimenez Junior Jr., DO Postoperative Information Postoperative disposition: Postoperative disposition: Home. Optimetrix number: Optimetrix number [id number]. Anesthetic utilized: General. Physical Examination Vital Signs 12/16/2023 9:11 EDT Heart Rate Monitored 62 bpm Respiratory Rate Monitored 18 br/min Systolic Blood Pressure 126 mmHg Diastolic Blood Pressure 76 mmHg Mean Arterial Pressure, Cuff 93 mmHg SpO2 98 % 12/16/2023 9:00 EDT Heart Rate Monitored 67 bpm Respiratory Rate Monitored 15 br/min Systolic Blood Pressure 117 mmHg Diastolic Blood Pressure 72 mmHg Mean Arterial Pressure, Cuff 87 mmHg SpO2 91 % 12/16/2023 8:55 EDT Heart Rate Monitored 65 bpm Respiratory Rate Monitored 17 br/min Systolic Blood Pressure 121 mmHg Diastolic Blood Pressure 67 mmHg Mean Arterial Pressure, Cuff 85 mmHg SpO2 99 % 12/16/2023 8:50 EDT Heart Rate Monitored 71 bpm Respiratory Rate Monitored 20 br/min Systolic Blood Pressure 113 mmHg Diastolic Blood Pressure 63 mmHg Mean Arterial Pressure, Cuff 80 mmHg SpO2 100 % 12/16/2023 8:46 EDT Temperature Temporal Artery 36.5 DegC Heart Rate Monitored 77 bpm Respiratory Rate Monitored 19 br/min Systolic Blood Pressure 113 mmHg Diastolic Blood Pressure 66 mmHg Mean Arterial Pressure, Cuff 82 mmHg SpO2 99 % Pain Assessment: Controlled. General: Awake, Alert, Appropriate. Respiratory: Adequate air exchange, Non-labored. Cardiovascular: Stable, Normal peripheral perfusion. Neurological: Neurologic exam at baseline. No changes.. Assessment Anesthetic outcome No anesthetic complications noted. No nausea/vomiting. Review / Management Condition: Stable. Plan Transfer/Discharge: Transfer/Discharge Discharge when meets criteria ( From PACU to Ambulatory Surgery Unit, and To home ).[facility]:Result Comment: Electronically Signed By: Jimenez Junior Jr., DO\Date and Time Signed: 12/16/23 09:53 [id number] NotePatient Education - Text Endoscopy Care After Procedure Please read the instructions outlined below and refer to this sheet in the next few weeks. These discharge instructions provide you with general information on caring [facility] Your doctor may also give you specific instructions. While your treatment has been planned according to the most current medical practices available, unavoidable complications occasionally occur. If you have any problems or questions after discharge, please call your doctor. ACTIVITY ? You may resume your regular activity but move at a slower pace for the next 24 hours. ? Take frequent rest periods for the next 24 hours. ? Walking will help expel (get rid of) the air and reduce the bloated feeling in your abdomen. ? No driving for 24 hours (because of the anesthesia (medicine) used during the test). ? You may shower. ? Do not sign any important legal documents or operate any machinery for 24 hours (because of the anesthesia used during the test). NUTRITION ? Drink plenty of fluids. ? You may resume your normal diet. ? Begin with a light meal and progress to your normal diet. ? Avoid alcoholic beverages for 24 hours or as instructed by your caregiver. MEDICATIONS ? You may resume your normal medications unless your caregiver tells you otherwise. WHAT YOU CAN EXPECT TODAY ? You may experience abdominal discomfort such as a feeling of fullness or ?gas? pains. FOLLOW-UP ? Your doctor will discuss the results of your test with you. seek immediate medical attention if any of the following occur: ? Excessive nausea (feeling sick to your stomach) and/or vomiting. ? Severe abdominal pain and distention (swelling). ? Trouble swallowing. ? Temperature over 100 F (37.8? C). ? Rectal bleeding or vomiting of blood. Document Released: 12/28/2004 Document Re-Released: 11/07/2006 ExitCare? Patient Information ?2009 [employer]. Gastroenterology Hiatal Hernia A hiatal hernia occurs when part of the stomach slides above the muscle that separates the abdomen from the chest (diaphragm). A person can be born with a hiatal hernia (congenital), or it may develop over time. In almost all cases of hiatal hernia, only the top part of the stomach pushes through the diaphragm. Many people have a hiatal hernia with no symptoms. The larger the hernia, the more likely it is that you will have symptoms. In some cases, a hiatal hernia allows stomach acid to flow back into the tube that carries food from your mouth to your stomach (esophagus). This may cause heartburn symptoms. The development of heartburn symptoms may mean that you have a condition called gastroesophageal reflux disease (GERD). What are the causes? This condition is caused by a weakness in the opening (hiatus) where the esophagus passes through the diaphragm to attach to the upper part of the stomach. A person may be born with a weakness in thehiatus, or a weakness can develop over time. What increases the risk? This condition is more likely to develop in: ? Older people. Age is a major risk factor for a hiatal hernia, especially if you are over the age of 50. ? women. ? People who are overweight. ? People who have frequent constipation. What are the signs or symptoms? Symptoms of this condition usually develop in the form of GERD symptoms. Symptoms include: ? Heartburn. ? Upset stomach (indigestion). ? Trouble swallowing. ? Coughing or wheezing. Wheezing is making high-pitched whistling sounds when you breathe. ? Sore throat. ? Chest pain. ? Nausea and vomiting. How is this diagnosed? This condition may be diagnosed during testing for GERD. Tests that may be done include: ? X-rays of your stomach or chest. ? An upper gastrointestinal (GI) series. This is an X-ray exam of your GI tract that is taken afteryou swallow a chalky liquid that shows up clearly on the X-ray. ? Endoscopy. This is a procedure to look into your stomach using a thin, flexible tube that has a tiny camera and light on the end of it. How is this treated? This condition may be treated by: ? Dietary and lifestyle changes to help reduce GERD symptoms. ? Medicines. These may include: ? Saqn-ode-vszxbef antacids. ? Medicines that make your stomach empty more quickly. ? Medicines that block the production of stomach acid (H2 blockers). ? Stronger medicines to reduce stomach acid (proton pump inhibitors). ? Surgery to repair the hernia, if other treatments are not helping. If you have no symptoms, you may not need treatment. Follow these instructions at home: Lifestyle and activity ? Do not use any products that contain nicotine or tobacco. These products include cigarettes, chewing tobacco, and vaping devices, such as e-cigarettes. If you need help quitting, ask your health care provider. ? Try to achieve and maintain a healthy body weight. ? Avoid putting pressu (more content not included)...[facility] 12-16-[facility] NoteProgress Note-Physician Patient: BELGICA FLANAGAN Age: 63 years Sex: Male : 1960 Associated Diagnoses: None Author: Jimenez Junior Jr., DO Preoperative Information Anesthesia history: Patient history: No prior anesthetic problems. Informed consent: Signed by patient. Re-evaluation prior to induction: Initial evaluation reviewed: No significant change. Review of Systems Respiratory: Negative except as documented in history of present illness. Cardiovascular: Negative except as documented in history of present illness. Health Status Allergies: Allergic Reactions (Selected) No Known Allergies No Known Medication Allergies, Allergies (2) Active Severity Reaction No Known Allergies None Documented No Known Medication Allergies None Documented Current medications: (Selected) Inpatient Medications Ordered Lactated Ringers IV Mery 1000 mL 1,000 mL: 1,000 mL, IV, 100 mL/hr, Routine, Start date 12/16/23 7:33:00 EDT, 10 hour(s), Total volume (mL): 1,000, 63.5 kg, 1.73, m2 Sodium Chloride 0.9% IV Mery 1000 mL 1,000 mL: 1,000 mL, IV, 20 mL/hr, Routine, Start date 12/16/23 6:41:00 EDT, 50 hour(s), Total volume (mL): 1,000, 63.5 kg, 1.73, m2 Prescriptions Prescribed famotidine 20 mg Tab: 20 mg = 1 tab(s), Oral, BID, X 14 day(s), # 28 tab(s), Refills(s) 0, Pharmacy: [id number], 170, cm, 12/06/23 13:17:00 EDT, Height/Length Dosing, 63.4, kg, 12/06/23 13:17:00 EDT, Weight Dosing ondansetron 4 mg Dis Tab: 4 mg = 1 tab(s), Oral, q6hr, # 12 tab(s), Refills(s) 0, Pharmacy: [id number], 170, cm, 12/06/23 13:17:00 EDT, Height/Length Dosing, 63.4, kg, 12/06/23 13:17:00 EDT, Weight Dosing Documented Medications Documented Abilify 5 mg Tab: 5 mg = 1 tab(s), Oral, Daily, Refills(s) 0, Depression Wellbutrin XL 150 mg/24 hours Tab-ER: 150 mg = 1 tab(s), Oral, Daily, Refills(s) 0, Depression, Home Medications (4) Active Abilify 5 mg Tab 5 mg = 1 tab(s), Oral, Daily famotidine 20 mg Tab 20 mg = 1 tab(s), Oral, BID ondansetron 4 mg Dis Tab 4 mg = 1 tab(s), Oral, q6hr Wellbutrin XL 150 mg/24 hours Tab-ER 150 mg = 1 tab(s), Oral, Daily , Medications (2) Active Scheduled: (0) Continuous: (2) Lactated Ringers 1,000 mL 1,000 mL, IV, 100 mL/hr Sodium Chloride 0.9% 1,000 mL 1,000 mL, IV, 20 mL/hr PRN: (0) Problem list: All Problems Abdominal pain / SNOMED CT 58776105 / Confirmed Abdominal pain in male / SNOMED CT 49555236 / Confirmed Alcohol dependence in remission / SNOMED CT 456182419 / Confirmed Anxiety / SNOMED CT 92140944 / Confirmed Chronic GERD / SNOMED CT 862502487 / Confirmed Epigastric pain / SNOMED CT 669283663 / Confirmed Nausea / SNOMED CT 3876206152 / Confirmed Nausea in adult / SNOMED CT 7585418520 / Confirmed Positive occult stool blood test / SNOMED CT 60049984 / Confirmed Tobacco user / SNOMED CT 740720629 / Confirmed Resolved: History of gross hematuria / SNOMED CT 7344123423 Histories Past Medical History: Resolved History of gross hematuria (7805156633): Resolved. Procedure history: Colonoscopy ([id number]) in the month of 06/2020 at 59 Years. Rotator cuff repair ([id number]). Social History Social & Psychosocial Habits Alcohol 12/15/2023 Use: Current Type: Beer Frequency: Daily 12/15/2023 Risk Assessment: Medium Risk Substance Abuse 12/15/2023 Use: Current Type: Marijuana Frequency: 1-2 times per week Tobacco 12/15/2023 Tobacco Use: Former smoker, quit more Smokeless tobacco use: Current vaping or e-cigar Type: Cigarettes, Vaping Tobacco use per day: 1.5 Started at age: 16.0 Years Stopped at age: 62 Years Smoking Cessation Yes . Physical Examination Vital Signs 12/16/2023 7:23 EDT Temperature Temporal Artery 36.4 DegC Heart Rate Monitored 61 bpm Respiratory Rate Monitored 16 br/min Systolic Blood Pressure 139 mmHg Diastolic Blood Pressure 66 mmHg Blood Pressure Location Left arm SpO2 98 % 12/15/2023 13:39 EDT Systolic Blood Pressure 131 mmHg Diastolic Blood Pressure 79 mmHg Mean Arterial Pressure, Cuff 96 mmHg 12/15/2023 13:32 EDT Peripheral Pulse Rate 67 bpm Systolic Blood Pressure 158 mmHg HI Diastolic Blood Pressure 79 mmHg Blood Pressure Location Left arm Measurements from flowsheet : Measurements 12/16/2023 7:23 EDT Height/Length Measured 170 cm Height/Length Dosing 170.0 cm Weight Dosing 63.5 kg BSA Measured 1.73 m2 Body Mass Index Measured 21.97 kg/m2 Weight Measured 63.5 kg 12/15/2023 13:32 EDT Height/Length Measured 170 cm Height/Length Dosing 170.0 cm Weight Dosing 63.5 kg Body Mass Index Measured 21.97 kg/m2 Weight Measured 63.5 kg Weight in Pounds 139.7 lb Height in Inches 67 in Airway: Mallampati classification: II (soft palate, fauces, uvula visible). Respiratory: Lungs are clear to auscultation, Respirations are non-labored. Cardiovascular: Regular rhythm. Plan [employer] (more content not included)...[facility]Comment on [facility]:Result Comment: Electronically Signed By: Jimenez Junior Jr., DO.darvin\Date and Time Signed: 12/16/23 07:34 [id number] Hospital Discharge instructions Patient Education 12/06/2023 15:34:03 Abdominal Pain, Adult Abdominal Pain, Adult Pain in the abdomen (abdominal pain) can be caused by many things. Often, abdominal pain is not serious and it gets better with no treatment or by being treated at home. However, sometimes abdominal pain is serious. Your health care provider will ask questions about your medical history and do a physical exam to try to determine the cause of your abdominal pain. Follow these instructions at home: Medicines Take gxeo-goi-hebeija and prescription medicines only as told by your health care provider. Do not take a laxative unless told by your health care provider. General instructions Watch your condition for any changes. Drink enough fluid to keep your urine pale yellow. Keep all follow-up visits as told by your health care provider. This is important. Contact a health care provider if: Your abdominal pain changes or gets worse. You are not hungry or you lose weight without trying. You are constipated or have diarrhea for more than 2 3 days. You have pain when you urinate or have a bowel movement. Your abdominal pain wakes you up at night. Your pain gets worse with meals, after eating, or with certain foods. You are vomiting and cannot keep anything down. You have a fever. You have blood in your urine. Get help right away if: Your pain does not go away as soon as your health care provider told you to expect. You cannot stop vomiting. Your pain is only in areas of the abdomen, such as the right side or the left lower portion of the abdomen. Pain on the right side could be caused by appendicitis. You have bloody or black stools, or stools that look like tar. You have severe pain, cramping, or bloating in your abdomen. You have signs of dehydration, such as: ?Dark urine, very little urine, or no urine. ?Cracked lips. ?Dry mouth. ?Sunken eyes. ?Sleepiness. ?Weakness. You have trouble breathing or chest pain. Summary Often, abdominal pain is not serious and it gets better with no treatment or by being treated at home. However, sometimes abdominal pain is serious. Watch your condition for any changes. Take temp-gut-zzvhqrr and prescription medicines only as told by your health care provider. Contact a health care provider if your abdominal pain changes or gets worse. Get help right away if you have severe pain, cramping, or bloating in your abdomen. This information is not intended to replace advice given to you by your health care provider. Make sure you discuss any questions you have with your health care provider. Document Revised: 07/04/2020 Document Reviewed: 09/24/2019 [employer] Patient Education 2022 [employer]. 12/06/2023 15:34:03 Gastroesophageal Reflux Disease, Adult Gastroesophageal Reflux Disease, Adult Gastroesophageal reflux (STEVE) happens when acid from the stomach flows up into the tube that connects the mouth and the stomach (esophagus). Normally, food travels down the esophagus and stays in thestomach to be digested. However, when a person has STEVE, food and stomach acid sometimes move back up into the esophagus. If this becomes a more serious problem, the person may be diagnosed with a disease called gastroesophageal reflux disease (GERD). GERD occurs when the reflux: Happens often. Causes frequent or severe symptoms. Causes problems such as damage to the esophagus. When stomach acid comes in contact with the esophagus, the acid may cause inflammation in the esophagus. Over time, GERD may create small holes (ulcers) in the lining of the esophagus. What are the causes? This condition is caused by a problem with the muscle between the esophagus and the stomach (lower esophageal sphincter, or LES). Normally, the LES muscle closes after food passes through the esophagus to the stomach. When the LES is weakened or abnormal, it does not close properly, and that allowsfood and stomach acid to go back up into the esophagus. The LES can be weakened by certain dietary substances, medicines, and medical conditions, including: Tobacco use. . Having a hiatal hernia. Alcohol use. Certain foods and beverages, such as coffee, chocolate, onions, and peppermint. What increases the risk? You are more likely to develop this condition if you: Have an increased body weight. Have a connective tissue disorder. Take NSAIDs, such as ibuprofen. What are the signs or symptoms? Symptoms of this condition include: Heartburn. Difficult or painful swallowing and the feeling of having a lump in the throat. A bitter taste in the mouth. Bad breath and having a large amount of saliva. Having an upset or bloated stomach and belching. Chest pain. Different conditions can cause chest pain. Make sure you see your health care provider if you experience chest pain. Shortness of breath or wheezing. Ongoing (chronic) cough or a nighttime cough. Wearing away of tooth enamel. Weight loss. How is this diagnosed? This condition may be diagnosed based on a medical history and a physical exam. To determine if youhave mild or severe GERD, your health care provider may also monitor how you respond to treatment. You may also have tests, including: A test to examine your stomach and esophagus with a small camera (endoscopy). A test that measures the acidity level in your esophagus. A test that measures how much pressure is on your esophagus. A barium swallow or modified barium swallow test to show the shape, size, and functioning of your esophagus. How is this treated? Treatment for this condition may vary depending on how severe your symptoms are. Your health care provider may recommend: Changes to your diet. Medicine. Surgery. The goal of treatment is to help relieve your symptoms and to prevent complications. Follow these instructions at home: Eating and drinking Follow a diet as recommended by your health care provider. This may involve avoiding foods and drinks such as: ?Coffee and tea, with or without caffeine. ?Drinks that contain alcohol. ?Energy drinks and sports drinks. ?Carbonated drinks or sodas. ?Chocolate and cocoa. ?Peppermint and mint flavorings. ?Garlic and onions. ?Horseradish. ?Spicy and acidic foods, including peppers, chili powder, cabrera powder, vinegar, hot sauces, and barbecue sauce. ?[place] fruit juices and citrus fruits, such as oranges, mary, and limes. ?Tomato-based foods, such as red sauce, chili, salsa, and pizza with red sauce. ?Fried and fatty foods, such as donuts, [place] fries, potato chips, and high-fat dressings. ?High-fat meats, such as hot dogs and fatty cuts of red and white meats, such as rib eye steak, sausage, ham, and dawn. ?High-fat dairy items, such as whole milk, butter, and cream cheese. Eat small, frequent meals instead of large meals. Avoid drinking large amounts of liquid with your meals. Avoid eating meals during the 2 3 hours before bedtime. Avoid lying down right after you eat. Do not exercise right after you eat. Lifestyle Do not use any products that contain nicotine or tobacco. These products include cigarettes, chewing tobacco, and vaping devices, such as e-cigarettes. If you need help quitting, ask your health careprovider. Try to reduce your stress by using methods such as yoga or meditation. If you need help reducing stress, ask your health care provider. If you are overweight, reduce your weight to an amount that is healthy for you. Ask your health care provider for guidance about a safe weight loss goal. General instructions Pay attention to any changes in your symptoms. Take hkcc-gza-qmxnlnn and prescription medicines only as told by your health care provider. Do not take aspirin, ibuprofen, or other NSAIDs unless your health care provider told you to take these medicines. Wear loose-fitting clothing. Do not wear anything tight around your waist that causes pressure on your abdomen. Raise (elevate) the head of your bed about 6 inches (15 cm). You can use a wedge to do this. Avoid bending over if this makes your symptoms worse. Keep all follow-up visits. This is important. Contact a health care provider if: You have: ?New symptoms. ?Unexplained weight loss. ?Difficulty swallowing or it hurts to swallow. ?Wheezing or a persistent cough. ?A hoarse voice. Your symptoms do not improve with treatment. Get help right away if: You have sudden pain in your arms, neck, jaw, teeth, or back. You suddenly feel sweaty, dizzy, or light-headed. You have chest pain or shortness of breath. You vomit and the vomit is green, yellow, or black, or it looks like blood or coffee grounds. You faint. You have stool that is red, bloody, or black. You cannot swallow, drink, or eat. These symptoms may represent a serious problem that is an emergency. Do not wait to see if the symptoms will go away. Get medical help right away. Call your local emergency services (911 in the [place] Do not drive yourself to the hospital. Summary Gastroesophageal reflux happens when acid from the stomach flows up into the esophagus. GERD is a disease in which the reflux happens often, causes frequent or severe symptoms, or causes problems such as damage to the esophagus. Treatment for this condition may vary depending on how severe your symptoms are. Your health care provider may recommend diet and lifestyle changes, medicine, or surgery. Contact a health care provider if you have new or worsening symptoms. Take fokb-ygn-wylgtnk and prescription medicines only as told by your health care provider. Do not take aspirin, ibuprofen, or other NSAIDs unless your health care provider told you to do so. Keep all follow-up visits as told by your health care provider. This is important. This information is not intended to replace advice given to you by your health care provider. Make sure you discuss any questions you have with your health care provider. Document Revised: 11/24/2020 Document Reviewed: 11/24/2020 [employer] Patient Education 2022 [employer]. Follow Up Care 12/06/2023 13:12:00 With:Vandana Mayer Address: [address] [place] [phone] Business (1) When:12/09/2023 15:22:59 With:Terri Bell Address: [address] [place] [phone] Business (1) When:Within 3 Day(s) [facility]07-09-2024 NoteED Patient Education Note Gastroenterology Abdominal Pain, Adult Pain in the abdomen (abdominal pain) can be caused by many things. Often, abdominal pain is not serious and it gets better with no treatment or by being treated at home. However, sometimes abdominal pain is serious. Your health care provider will ask questions about your medical history and do a physical exam to try to determine the cause of your abdominal pain. Follow these instructions at home: Medicines ? Take uwqe-dwh-iqpzuvc and prescription medicines only as told by your health care provider. ? Do not take a laxative unless told by your health care provider. General instructions ? Watch your condition for any changes. ? Drink enough fluid to keep your urine pale yellow. ? Keep all follow-up visits as told by your health care provider. This is important. Contact a health care provider if: ? Your abdominal pain changes or gets worse. ? You are not hungry or you lose weight without trying. ? You are constipated or have diarrhea for more than 2?3 days. ? You have pain when you urinate or have a bowel movement. ? Your abdominal pain wakes you up at night. ? Your pain gets worse with meals, after eating, or with certain foods. ? You are vomiting and cannot keep anything down. ? You have a fever. ? You have blood in your urine. Get help right away if: ? Your pain does not go away as soon as your health care provider told you to expect. ? You cannot stop vomiting. ? Your pain is only in areas of the abdomen, such as the right side or the left lower portion of the abdomen. Pain on the right side could be caused by appendicitis. ? You have bloody or black stools, or stools that look like tar. ? You have severe pain, cramping, or bloating in your abdomen. ? You have signs of dehydration, such as: ? Dark urine, very little urine, or no urine. ? Cracked lips. ? Dry mouth. ? Sunken eyes. ? Sleepiness. ? Weakness. ? You have trouble breathing or chest pain. Summary ? Often, abdominal pain is not serious and it gets better with no treatment or by being treated at home. However, sometimes abdominal pain is serious. ? Watch your condition for any changes. ? Take pamd-sni-kbdpcfv and prescription medicines only as told by your health care provider. ? Contact a health care provider if your abdominal pain changes or gets worse. ? Get help right away if you have severe pain, cramping, or bloating in your abdomen. This information is not intended to replace advice given to you by your health care provider. Make sure you discuss any questions you have with your health care provider. Document Revised: 07/04/2020 Document Reviewed: 09/24/2019 [employer] Patient Education ? 2022 [employer] Gastroesophageal Reflux Disease, Adult Gastroesophageal reflux (STEVE) happens when acid from the stomach flows up into the tube that connects the mouth and the stomach (esophagus). Normally, food travels down the esophagus and stays in thestomach to be digested. However, when a person has STEVE, food and stomach acid sometimes move back up into the esophagus. If this becomes a more serious problem, the person may be diagnosed with a disease called gastroesophageal reflux disease (GERD). GERD occurs when the reflux: ? Happens often. ? Causes frequent or severe symptoms. ? Causes problems such as damage to the esophagus. When stomach acid comes in contact with the esophagus, the acid may cause inflammation in the esophagus. Over time, GERD may create small holes (ulcers) in the lining of the esophagus. What are the causes? This condition is caused by a problem with the muscle between the esophagus and the stomach (lower esophageal sphincter, or LES). Normally, the LES muscle closes after food passes through the esophagus to the stomach. When the LES is weakened or abnormal, it does not close properly, and that allowsfood and stomach acid to go back up into the esophagus. The LES can be weakened by certain dietary substances, medicines, and medical conditions, including: ? Tobacco use. ? . ? Having a hiatal hernia. ? Alcohol use. ? Certain foods and beverages, such as coffee, chocolate, onions, and peppermint. What increases the risk? You are more likely to develop this condition if you: ? Have an increased body weight. ? Have a connective tissue disorder. ? Take NSAIDs, such as ibuprofen. What are the signs or symptoms? Symptoms of this condition include: ? Heartburn. ? Difficult or painful swallowing and the feeling of having a lump in the throat. ? A bitter taste in the mouth. ? Bad breath and having a large amount of saliva. ? Having an upset or bloated stomach and belching. ? Chest pain. Different conditions can cause chest pain. Make sure you see your health care provider if you experience chest pain. ? Shortness of breath or wheezing. ? Ongoing (ch (more content not included)...[facility] 09-20-2023 NoteChief Complaint consultation for abdominal pain and nausea HPI Staff 62 year old male presents on consultation from Dr. Bell for abdominal pain and nausea. Reports several month history of stated complaints. He is unable to describe pain. Reports nausea is daily and unrelated to oral intake. Denies vomiting. Took Protonix 40mg daily for several weeks without change in stated complaints. RUQ US completed 08/25- unremarkable. CT abdomen/pelvis completed 09/11 with bladder wall thickening otherwise unremarkable. Never had EGD in the past. Previous colonoscopy completed 07/20 with tubular adenoma. History of Present Illness 62 yo male with h/o anxiety, referred for mid abd pain, intermittent nausea; no improvement with PPI; recently prescribed Levsin, but did not take it; no change with eating, feels more like pressure;no emesis, no change in bms or blood in stools; recent GB US with 3 mm polyp on posterior wall, no distension or wall thickening, normal ducts; also recent abd/pelvic ct scan wnl except for bladder wall thickening; images reviewed; no abd operations; colonoscopy 06/2020 due to positive fecal occult blood, small sigmoid tubular adenoma removed; no asa or NSAID use; fmhx of pancreatic cancer in patient's mother; smokes daily. Review of Systems PHQ Score Initial Depression Screen Score: 0 SCORE ROS - Provider Constitutional: no fever, no sweats, no weight loss. Eyes: no glasses, no blurred vision, no visual loss. ENMT: no dentures, no hoarseness, no swallowing difficulties, no hearing loss, no ear infection(s),no nose bleeds. Cardiovascular: normal blood pressure, no chest pain, regular heartbeat, no heart murmur. Respiratory: no shortness of breath, no cough, no asthma, no wheezing. Gastrointestinal: no nausea, no vomiting, no diarrhea, no constipation, no blood in stool, no change in bowel habits, mild abdominal pain, no hepatitis. Genitourinary: no kidney stones, no urine infection, no dysuria. Musculoskeletal: no pain, no weakness. Skin: no changing moles, no rash, no skin lumps. Neurologic: no seizures, no epilepsy, no headache. Psychiatric: no emotional or psychiatric problem. Heme/Lymph: no bleeding problems, no anemia, no blood clots, no transfusions. Allergy/Immunologic: no swollen lymph nodes/glands, no IV drug abuse. Other: Additional ROS info: Except as noted in the above Review of Systems and in the History of Present Illness, all other systems have been reviewed and are negative or noncontributory. Physical Exam Vitals & Measurements HR: 72(Peripheral) RR: 16 BP: 144/84 HT: 67 in HT: 170 cm WT: 66 kg WT: 145.2 lb BMI: 22.84 HEENT: normal conjunctiva, sclera clear, no scleral icterus, EOM intact, PERRLA, oral mucosa moist without lesions. Neck: trachea midline, no mass, symmetric, no thyromegaly or nodules, no adenopathy Respiratory: lungs CTA, respirations non labored. Cardiovascular: regular rate and rhythm, no murmur, no pedal edema or varicosities. Gastrointestinal: soft, non distended, no tenderness, no masses, no palpable hernias, diastasis recti no, no hepatosplenomegaly; normal bs Lymphatic: no cervical adenopathy, no supraclavicular adenopathy. Musculoskeletal: normal gait, digits and nails without infection, nodes, cyanosis, clubbing. Skin: no rashes, no lesions, no ulcers, no subcutaneous nodules, induration. Psychiatric/Neuro: oriented to time, place, person, judgement normal, affect appropriate for age, insight intact, no focal deficits. Tests: , x-rays reviewed, review of old records completed , Discussed surgical options, risks, and possible complications with patient. Assessment/Plan 1. Epigastric pain (R10.13: Epigastric pain) plan EGD with anesthesia for further evaluation, informed consent obtained. 2. Nausea in adult (R11.0: Nausea) see # 1 Follow-up No qualifying data available Problem List/Past Medical History Ongoing Abdominal pain Anxiety Epigastric pain Nausea Nausea in adult Positive occult stool blood test Tobacco user Historical History of gross hematuria Procedure/Surgical History Colonoscopy (06/2020), Rotator cuff repair. Medications Abilify 5 mg Tab, 5 mg= 1 tab(s), Oral, Daily Wellbutrin XL 150 mg/24 hours Tab-ER, 150 mg= 1 tab(s), Oral, Daily Allergies No Known Allergies No Known Medication Allergies Social History Alcohol - Denies Alcohol Use, 06/25/2020 Current, Beer, Daily, 09/20/2023 Substance Abuse Current, Marijuana, 1-2 times per week, 09/20/2023 Tobacco Former smoker, quit more than 30 days ago Tobacco Use:. Current vaping or e- cigarette use SmokelessTobacco Use:. Cigarettes, Vaping, 1.5 per day. Started age 16.0 Years. Stopped age 62 Years. Yes, 09/20/2023 Family History Heart disease: Father. Pancreatic cancer: Mother. Immunizations Vaccine Date Status Comments SARS-CoV-2 (COVID-19) mRNA BNT-162b2 vax 10/03/2020 Recorded SARS-CoV-2 (COVID-19) mRNA BNT-162b2 vax 09/12/2020 Recorded influ (more content not included)...[facility] Result Comment: Electronically Signed By: JORGE STEPHENS, Antionette Martinez\Date and Time Signed: 09/20/23 16:21 [id number] NotePROCEDURE: XR SHOULDER RT 2V or > HISTORY: Impingement syndrome of shoulder region ; chronic right shoulder pain and neck pain COMPARISON: None. FINDINGS: BONES:Narrowing of the acromion clavicular joint with large undersurface and cephalad projecting osteophytes. Unremarkable humeral head and glenoid. No fracture or dislocation. SOFT TISSUES:No visible soft tissue swelling. EFFUSION:None visible. OTHER: Negative. IMPRESSION: 1. Moderate-marked degenerative changes of the acromioclavicular joint. 2. Acute bone abnormality. Electronically authenticated by: NICHOLAS HALE Date: 2020-11-17 12:52[facility]02-10-2021 NoteOPERATIVE NOTE OPERATION DATE: 07/09/2020 PREOPERATIVE DIAGNOSIS: Fecal occult blood positive stool. POSTOPERATIVE DIAGNOSIS: Two adjacent distal sigmoid polyps 4 mm and 2 mm. PROCEDURE NAME: Colonoscopy to cecum with cold forceps polypectomy x2. SURGEON: Antionette Horta M.D. ANESTHESIA: Monitored anesthesia care. ESTIMATED BLOOD LOSS: Less than 1 mL. INDICATIONS AND CONSENT: Patient is a 59-year-old male who presents for colonoscopy due to fecal occult blood positive stool. Indications, risks, benefits and alternatives of proceeding with colonoscopy were explained extensively to patient including risks of bleeding, colonic perforation or anesthetic complications. All of his questions were answered. Informed consent was obtained. PROCEDURE: Patient brought to the operating room and placed in the left lateral decubitus position. Monitored anesthesia care was provided. Rectal examination was performed which showed no masses or blood. The scope was inserted into the anal canal under direct visualization and was advanced. With the aid of abdominal compression, it was advanced to the cecum where cecal markings were clearly identified. There was noted to be a good prep. Upon withdrawal of the scope, mucosal surfaces were carefully examined. There was no mass, lesions or inflammatory changes. No significant diverticulosis. Within the distal sigmoid at 19 cm, there was noted to two adjacent sessile polyps, one was 4 mm and one was 2 mm. These were removed with cold biopsy forceps with good hemostasis. The scope was retroflexed in the anal canal. There was no significant hemorrhoidal disease. The scope was then withdrawn. Patient tolerated the procedure well. Followup colonoscopy should be in 3 to 5 years depending on pathology results.. [facility] Signed and Approved by: DR ANTIONETTE HORTA . 07/23/2020 09:23:00[facility] No data available for this section [facility] Evaluation + Plan note Future Appointments Appointment Date:12/21/2023 12:45:00 PM Scheduled Provider:Vandana Mayer MD [facility] Future Appointments Appointment Date:12/16/2023 08:15:00 AM Scheduled Provider: Location:[facility] Appointment Type:[facility] Discharge instructions No data available for this section [facility] Progress note No data available for this section [facility] Summary Purpose Family History No Family History Records FoundNo Family History Records Found No data available for this section No Family History Records Found No data available for this section No data available for this section No data available for this section No Family History Records FoundNo Family History Records Found No data available for this section No Family History Records FoundNo Family History Records Found Advance Directives No Advanced Directives Records FoundNo Advanced Directives Records FoundNo Advanced Directives Records FoundNo Advanced Directives Records FoundNo Advanced Directives Records FoundNo Advanced Directives Records FoundNo Advanced Directives Records Found Additional Source Comments (unrecognized sect ion and content) No Status Records FoundNo Status Records FoundNo Status Records FoundNo Status Records FoundNo Status Records FoundNo Status Records FoundNo Status Records Found INFORMATION SOURCE (unrecogn ized section and content) DATE CREATED AUTHOR 06/22/2021 [facility] DATE CREATED AUTHOR AUTHOR'S ORGANIZ ATION 07/02/2021 [facility] DATE CREATED AUTHOR AUTHOR'S ORGANIZ ATION 11/05/2023 [facility] DATE CREATED AUTHOR AUTHOR'S ORGANIZ ATION 12/21/2023 [facility] DATE CREATED AUTHOR AUTHOR'S ORGANIZ ATION 12/22/2023 [facility] DATE CREATED AUTHOR AUTHOR'S ORGANIZ ATION 02/05/2024 [facility] DATE CREATED AUTHOR AUTHOR'S ORGANIZ ATION 02/10/2024 [facility] Patient Care team informatio n (unrecognized section and content) Personnel Name: Terri Bell MD Address: Address: [address] [place] [address] Personnel Name: Terri Bell MD Address: Address: [address] [place] [address] Personnel Name: Terri Bell MD Address: Address: [address] [place] [address] Personnel Name: Terri Bell MD Address: Address: [address] [place] [address] Personnel Name: Terri Bell MD Address: Address: [address] [place] [address] FOR RECORDS PERTAINING TO PATIENTS WHO ARE OR HAVE BEEN ENROLLED IN A CHEMICAL DEPENDENCY/SUBSTANCEABUSE PROGRAM, SOME INFORMATION MAY BE OMITTED. This clinical summary was aggregated from multiple sources. Caution should be exercised in using it in the provision of clinical care. This summary normalizes information from multiple sources, and as a consequence, information in this document may materially change the coding, format and clinical context of patient data. In addition, data may be omitted in some cases. CLINICAL DECISIONS SHOULD BE BASED ON THE PRIMARY CLINICAL RECORDS. [employer] [facility] provides no warranty or guarantee of the accuracy or completeness of information in this document.
--- NOTE | 2024-03-16 11:42 | XR_ITS ---
[address] [address] Patient Name: BELGICA PRINCE MRN: [id number] date: 1960 Sex: M Assigned Patient Location: [facility] Current Patient Location: Accession/Order Number: [id number] Exam Date: 03/16/2024 11:38 Report Date: 03/19/2024 13:49 At the request of: TERRI FENTON Procedure: XR abdomen min 2V EXAMINATION: XR abdomen min 2V HISTORY: Constipated K59.00 COMPARISON: No relevant comparison available. FINDINGS: BOWEL GAS PATTERN: No abnormal dilation or deviation. Normal amount of stool CALCIFICATIONS: None significant. OTHER: Moderate degenerative changes in the spine. No abnormal gaseous collections. XR/XR abdomen min 2V IMPRESSION: Nonobstructive bowel gas pattern. Normal amount of stool Electronically authenticated by: RAMSES TREVINO Date: 03/19/2024 13:49
== END 2024-03-16 11:24 | disposition home or self-care (01) ==
LOC: RAD 11:24
PROVIDERS: PCP Family Medicine; Visit Provider Family Medicine
DX: K59.00 Constipation, unspecified (principal)
CPT/HCPCS: 74019